=== PATIENT | male | born 1955 | race Caucasian/White ===

== ENCOUNTER 2020-12-26 12:10 | Outpatient (REF) | payer MEDICAID, SELFPAY ==
[2020-12-26 13:54] LABS: Prostate Specific Antigen 2.83 ng/mL (<0.05-4.0)
== END 2020-12-26 12:11 | disposition home or self-care (01) ==
LOC: HO.LAB 12:10
PROVIDERS: PCP Internal Medicine; Visit Provider Urology
DX: N40.1 Benign prostatic hyperplasia with lower urinary tract symptoms (principal); N13.8 Other obstructive and reflux uropathy; Z12.5 Encounter for screening for malignant neoplasm of prostate
CPT/HCPCS: 36415; 84153

== ENCOUNTER → 2020-12-29 10:33 | Outpatient (BNVA) | payer MEDICAID, SELFPAY | PROVIDERS: PCP Internal Medicine; Visit Provider Urology | DX: N52.9 Male erectile dysfunction, unspecified (principal); N40.1 Benign prostatic hyperplasia with lower urinary tract symptoms; R33.9 Retention of urine, unspecified; N13.8 Other obstructive and reflux uropathy | CPT/HCPCS: 51798; 81002; 99212 ==

== ENCOUNTER 2021-09-04 11:40 | Outpatient (REF) | payer MEDICAID, SELFPAY ==
--- NOTE | ~2021-09-04 | XR_ITS ---
EXAMINATION: XR CHEST CLINICAL INFORMATION: Cough, unspecified. COMPARISON: Chest radiograph 01/06/2014. TECHNIQUE: 2 views of the chest were obtained. FINDINGS: Normal appearance of the cardiomediastinal structures. No effusions or pneumothoraces. Normal pattern of pulmonary vasculature. No focal pulmonary consolidation. Mild multilevel endplate osteophytosis of the thoracic spine. Partial visualization is made of anterior plate and screw fixation within the lower cervical spine. XR/XR chest 2V IMPRESSION: *No cardiopulmonary abnormalities. Lungs clear.
== END 2021-09-04 11:41 | disposition home or self-care (01) ==
LOC: HO.XRAY 11:40
PROVIDERS: PCP Internal Medicine; Visit Provider Internal Medicine
DX: R05.9 Cough, unspecified (principal)
CPT/HCPCS: 71046

== ENCOUNTER 2021-10-26 13:59 | Outpatient (REF) | payer OTHER, MEDICAID, SELFPAY ==
--- NOTE | ~2021-10-26 | XR_ITS ---
EXAMINATION: RIGHT SHOULDER AND CERVICAL SPINE. CLINICAL INFORMATION: Neck pain and shoulder pain. COMPARISON: None TECHNIQUE: 4 views right shoulder and 4 views cervical spine. FINDINGS: Right shoulder: There is reduction in the glenohumeral joint space with inferior periarticular spurring. The AC joint space is maintained normal. There is.). There is also superior and lateral acromial enthesophytes. No loose body seen. No bony erosive changes. There is evidence of previous rotator cuff surgery. Cervical spine: There is maintained cervical lordosis. Ventral plate and screws are seen at the C5-C6 disc level for disc fusion. The vertebral heights and alignment is maintained normal. There is anterior inferior spurs C3 and C4 vertebra. No visible acute fracture or dislocation seen. No lytic process. XR/XR shoulder RT min 2V IMPRESSION: The degenerative arthritic changes right shoulder. No visible acute fracture or dislocation. C5-C6 anterior fusion with metallic plate and screws. Anterior inferior ventral spurring C3 and C4 vertebra.
--- NOTE | ~2021-10-26 | XR_ITS ---
EXAMINATION: RIGHT SHOULDER AND CERVICAL SPINE. CLINICAL INFORMATION: Neck pain and shoulder pain. COMPARISON: None TECHNIQUE: 4 views right shoulder and 4 views cervical spine. FINDINGS: Right shoulder: There is reduction in the glenohumeral joint space with inferior periarticular spurring. The AC joint space is maintained normal. There is.). There is also superior and lateral acromial enthesophytes. No loose body seen. No bony erosive changes. There is evidence of previous rotator cuff surgery. Cervical spine: There is maintained cervical lordosis. Ventral plate and screws are seen at the C5-C6 disc level for disc fusion. The vertebral heights and alignment is maintained normal. There is anterior inferior spurs C3 and C4 vertebra. No visible acute fracture or dislocation seen. No lytic process. XR/XR cervical spine 2V IMPRESSION: The degenerative arthritic changes right shoulder. No visible acute fracture or dislocation. C5-C6 anterior fusion with metallic plate and screws. Anterior inferior ventral spurring C3 and C4 vertebra.
== END 2021-10-26 14:00 | disposition home or self-care (01) ==
LOC: HO.XRAY 13:59
PROVIDERS: PCP Internal Medicine; Visit Provider Internal Medicine
DX: M54.2 Cervicalgia (principal); M25.511 Pain in right shoulder
CPT/HCPCS: 72040; 73030

== ENCOUNTER 2022-06-01 09:05 | Outpatient (REF) | payer MEDICARE, MEDICAID, SELFPAY ==
[2022-06-01 10:31] LABS: PSA,Total (Free>4and<10) 2.16 ng/mL (0.00-4.00)
== END 2022-06-01 09:06 | disposition home or self-care (01) ==
LOC: HO.LAB 09:05
PROVIDERS: PCP Internal Medicine; Visit Provider Urology
DX: N40.1 Benign prostatic hyperplasia with lower urinary tract symptoms (principal); N13.8 Other obstructive and reflux uropathy; E11.65 Type 2 diabetes mellitus with hyperglycemia; E78.5 Hyperlipidemia, unspecified; Z12.5 Encounter for screening for malignant neoplasm of prostate
CPT/HCPCS: 36415; 84153

== ENCOUNTER → 2022-06-06 09:56 | Outpatient (BNVA) | payer MEDICARE, MEDICAID, SELFPAY | PROVIDERS: PCP Internal Medicine; Visit Provider Urology | DX: N40.1 Benign prostatic hyperplasia with lower urinary tract symptoms (principal); N13.8 Other obstructive and reflux uropathy; R33.8 Other retention of urine; N52.9 Male erectile dysfunction, unspecified; Z79.899 Other long term (current) drug therapy | CPT/HCPCS: 51798; 99212 ==

== ENCOUNTER 2022-07-05 09:56 | Outpatient (REF) | payer MEDICARE, MEDICAID, SELFPAY ==
[2022-07-05 11:08] LABS: Estimated Average Glucose 169 mg/dL; Hemoglobin A1c % 7.5 %
[2022-07-05 11:22] LABS: Glucose Fasting 134 mg/dL (60-99)
== END 2022-07-05 09:57 | disposition home or self-care (01) ==
LOC: HO.LAB 09:56
PROVIDERS: PCP Internal Medicine; Visit Provider Internal Medicine
DX: E11.65 Type 2 diabetes mellitus with hyperglycemia (principal)
CPT/HCPCS: 36415; 82947; 83036

== ENCOUNTER 2023-01-12 08:00 | Outpatient (REF) | payer MEDICARE, MEDICAID, SELFPAY ==
[2023-01-12 08:19] LABS: MANUAL DIFF FLAG NO
[2023-01-12 08:41] LABS: Basophils Percent Auto 0.4 % (0-2); Eosinophils Absolute Auto 0.2 X10*3/uL (0.0-0.4); Eosinophils Percent Auto 2.4 % (0-4); Hematocrit 39.4 % (42.0-52.0); Hemoglobin 12.5 g/dl (14.0-18.0); Imm Gran Abs Auto 0.03 X10*3/uL (0.00-0.03); Imm Gran Pct Auto 0.4 % (0.0-0.4); Lymphocytes Absolute Auto 2.7 X10*3/uL (1.2-4.9); Lymphocytes Percent Auto 37.3 % (20-40); Mean Corpuscular HGB Conc 31.7 g/dl (31.0-36.0); Mean Corpuscular Hemoglobin 26.4 pg (27.0-33.0); Mean Corpuscular Volume 83.1 fL (80.0-98.0); Mean Platelet Volume 9.7 fL (9.4-12.4); Monocytes Absolute Auto 0.7 X10*3/uL (0.1-1.2); Monocytes Percent Auto 9.4 % (2-11); Neutrophils Absolute Auto 3.6 x10*3/uL (2.0-8.3); Neutrophils Percent Auto 50.1 % (45-73); Platelet Count 199 X10*3/uL (160-400); Red Blood Count 4.74 X10*6/uL (4.60-5.80); Red Cell Distribution Width 13.8 % (11.0-16.0); White Blood Count 7.2 X10*3/uL (4.8-10.8)
[2023-01-12 08:52] LABS: Estimated Average Glucose 171 mg/dL; Hemoglobin A1c % 7.6 %
[2023-01-12 09:10] LABS: Alanine Aminotransferase 33 U/L (0-40); Alkaline Phosphatase 61 U/L (39-117); Anion Gap 11 (12-20); Aspartate Amino Transferase 31 U/L (5-37); Bilirubin Total 0.6 mg/dL (0.0-1.0); Blood Urea Nitrogen 12 mg/dL (9-16); Calcium 9.3 mg/dL (8.4-10.2); Carbon Dioxide 27 mmol/L (22-29); Chloride 105 mmol/L (96-108); Cholesterol 142 mg/dL; Estimated Glomerular Filt Rate > 60; Glucose Fasting 141 mg/dL (60-99); HDL Cholesterol 34 mg/dL; LDL Cholesterol Calculated 69 mg/dl; Potassium 4.6 mmol/L (3.3-5.1); Sodium 138 mmol/L (135-145); Total Protein 7.4 g/dL (6.5-8.0); Triglycerides 195 mg/dL
== END 2023-01-12 08:01 | disposition home or self-care (01) ==
LOC: HO.LAB 08:00
PROVIDERS: PCP Internal Medicine; Visit Provider Internal Medicine
DX: Z13.0 Encounter for screening for diseases of the blood and blood-forming organs and certain disorders involving the immune mechanism (principal); I10 Essential (primary) hypertension; E11.9 Type 2 diabetes mellitus without complications; E78.5 Hyperlipidemia, unspecified
CPT/HCPCS: 36415; 80053; 80061; 83036; 85025

== ENCOUNTER 2023-05-29 09:14 | Outpatient (REF) | payer MEDICARE, MEDICAID, SELFPAY ==
[2023-05-29 11:34] LABS: Prostate Specific Antigen 2.77 ng/mL (<0.05-4.0)
== END 2023-05-29 09:15 | disposition home or self-care (01) ==
LOC: HO.LAB 09:14
PROVIDERS: PCP Internal Medicine; Visit Provider Urology
DX: N40.1 Benign prostatic hyperplasia with lower urinary tract symptoms (principal); N13.8 Other obstructive and reflux uropathy; Z12.5 Encounter for screening for malignant neoplasm of prostate
CPT/HCPCS: 36415; 84153

== ENCOUNTER 2023-06-06 10:50 | Outpatient (AMB) | payer MEDICARE, MEDICAID, SELFPAY ==
--- NOTE | 2023-06-06 10:55 | MHC.OFFVIS ---
Intake Intake Visit Reasons: 1Y PSA(set) Intake Note: Patient is present for PSA/PVR Follow Up Current Medication: Sildenafil, Terazosin Blood Thinners: none Post Void Residual: Allergies morphine [MORPHINE] Allergy (Intermediate, Verified 06/06/23 11:07) ITCHING, Itchy/hives sulfamethoxazole [From BACTRIM] Allergy (Mild, Verified 06/06/23 11:07) BLISTERS trimethoprim [From BACTRIM] Allergy (Mild, Verified 06/06/23 11:07) BLISTERS HPI HPI Comments History of Present Illness Details Jaime Liu is a very pleasant male. He is a patient of Dr Wei. He is seen for the following urologic conditions. - lower urinary tract symptoms - erectile dysfunction PSA 2.7 Stable urinary performance Trial daily tadalafil with on demand sildenafil New issue Peyronie's disease Ventral curve in midline reported Trial antioxidant medications 6 month review with imaging Lower Urinary Tract Symptoms: Current visit is for further evaluation of, lower urinary tract symptoms, predominate obstructive symptoms. Current treatment includes medication, alpha john, , terazosin 10 mg. Prior treatments include medication, 5-alpha reductase, finasteride - low PSA. Prostate Symptom Score Moderate (9-19), Bother 2. Symptoms include incomplete emptying, weak stream, nocturia (>2), and are improving. Results from testing include cystoscopy Trilobar hypertrophy Prior Prostate Score moderate. PSA PSA 10/26 1.0, 12/26 PSA 1.9, 12/28 2.8, 05/31 2.2, 06/01 2.7 Prostate volume 30-50gm. Associated conditions CAD No CVA No diabetes Yes Testing at next visit will include bladder scan, uroflow, Prostate Symptom Score. Treatment plan - terazosin 10 mg in the evening Prescription provided. Erectile dysfunction Progressive Background type 2 diabetic Current sugar control HbA1c 7.6 Headache with sildenafil Use of tadalafil PFSH Medical History (Updated 06/06/23 @ 11:16 by Luis Soriano MD) Erectile dysfunction Obesity Diabetes mellitus, type II Cervical herniated disc Erectile dysfunction due to arterial insufficiency Glucosuria BPH (benign prostatic hyperplasia) Feeling of incomplete bladder emptying Umbilical hernia External bleeding hemorrhoids Rectal bleeding Surgical History History of repair of rotator cuff History of hand surgery History of bunionectomy History of fusion of cervical spine History of rectal surgery Family History Father No problems noted. Mother Renal failure Heart disease Sister Diabetes Social History Housing: House Patient Tobacco Use Status: Never used Tobacco e-Cigarette/Vaping Use: Never Used Second Hand Smoke Exposure: No service: No Current occupational status: employed Cognitive needs: No Hearing needs: No Vision needs: No Review of Systems Const Denies chills and Denies fever(s) Card Reports no additional complaints and Denies syncope Resp Denies cough GI Denies abdominal pain and Denies heartburn Reports as per HPI and Denies change in libido Neuro Denies syncope Psych Denies change in libido Endo Denies change in libido Physical Exam Const General: cooperative, healthy appearing, comfortable and no acute distress Orientation/consciousness: patient oriented x3 HEENT Face and sinus: Yes normal facial exam Mouth: moist mucous membranes Neck Neck: Yes normal visual inspection, Yes full ROM and Yes trachea midline Chest Chest palpation & inspection: normal inspection of the chest Resp Effort & Inspection: normal respiratory effort, able to speak in complete sentences and no respiratory distress GI Inspection: Yes normal to inspection Back/Spine/Pelvis Cervical Spine: normal cervical lordosis Thoracic/Lumbar Spine: thoracic and lumbar spine normal to inspection Skin General skin exam: no rashes or lesions noted Neuro General: patient oriented x3, gait normal, tone normal and moves all extremities Extrem General: Yes normal to inspection and Yes capillary refill normal Office Procedures Post Void Residual Post Residual Void Post Void Residual (PVR): 12 60411-[id number] Void Residual by ultrasound Results AMB Urinalysis, Automated UA Leukoctes 0 Marlen/uL Last Edit by Maciej Shea on 06/06/23 11:09 UA Nitrite Last Edit by Maciej Shea on 06/06/23 11:09 UA Urobilinogen 0.2 mg/dL Last Edit by Maciej hSea on 06/06/23 11:09 UA Protein 0 mg/dL Last Edit by Maciej Shea on 06/06/23 11:09 UA pH 6.0 Last Edit by Maciej Shea on 06/06/23 11:09 UA Blood 0 Calos/uL Last Edit by Maciej Shea on 06/06/23 11:09 UA Specific Palmer 1.010 Last Edit by Maciej Shea on 06/06/23 11:09 UA Ketone Negative Last Edit by Maciej Shea on 06/06/23 11:09 UA Bilirubin 0 mg/dL Last Edit by Maciej Shea on 06/06/23 11:09 UA Glucose 100 mg/dL Last Edit by Maciej Shea on 06/06/23 11:09 Assessment & Plan Assessment & Plan (1) Peyronie's disease: Code(s): N48.6 - Induration penis plastica (2) Erectile dysfunction associated with type 2 diabetes mellitus: Code(s): E11.69 - Type 2 diabetes mellitus with other specified complication; N52.1 - Erectile dysfunction due to diseases classified elsewhere (3) BPH w urinary obs/LUTS: Code(s): N40.1 - Benign prostatic hyperplasia with lower urinary tract symptoms; N13.8 - Other obstructive and reflux uropathy Plan Six month follow-up Orders: Orders AMB Post Void Residual by ultrasound Today N13.8 - Other obstructive and reflux uropathy, N40.1 - Benign prostatic hyperplasia with lower urinary tract symptoms AMB Urinalysis Automated Today Z13.9 - Encounter for screening, unspecified Medications: New tadalafil 5 mg PO DAILY 90 days 90 tabs 0RF sexual activity E11.69 - Type 2 diabetes mellitus with other specified complication, N52.1 - Erectile dysfunction due to diseases classified elsewhere vitamin E (dl, acetate) 450 mg PO DAILY 90 caps 1RF 90 days N48.6 - Induration penis plastica pentoxifylline ER 400 mg PO BID 180 tabs 1RF 90 days N48.6 - Induration penis plastica Refilled terazosin 10 mg PO DAILY 90 days 90 caps 3RF N13.8 - Other obstructive and reflux uropathy, N40.1 - Benign prostatic hyperplasia with lower urinary tract symptoms sildenafil administer 60 minutes before intended activity 100 mg PO DAILY 30 days PRN 30 tabs 1RF sexual activity N52.9 - Male erectile dysfunction, unspecified Patient Instructions: Imaging studies, laboratory and physical exam results were discussed and reviewed in detail. No major barriers to patient understanding were identified. An opportunity to ask questions regarding the treatment plan was provided. All questions were answered. The patient expressed understanding and agreement with the above treatment plan. The patient is aware they should contact our office by phone for worsening of their current condition or the appearance of new urologic symptoms. Compliance is encouraged with any medications and followup testing that is ordered. It is a privilege to participate in the urologic care of your patient. If you have any questions or concerns regarding treatment for the above conditions, or other urologic issues, please do not hesitate to contact me. The office telephone contact is [phone]. This note is constructed using voice recognition software. While every effort has been made to ensure accuracy deep well contractor errors may have been included. Yours sincerely, Dr Luis Soriano MD, [facility] - Urology Providers of Expert, Compassionate Care for the Genitourinary System Coding Level of Care Code Est Pt Level 4 (44645) Diagnoses Peyronie's disease N48.6 Erectile dysfunction associated with type 2 diabetes mellitus E11.69; N52.1 BPH w urinary obs/LUTS N40.1; N13.8 CPT Codes Post Residual Void - PVR CPT Code: 73263-[id number] Void Residual by ultrasound ([id number])
== END 2023-06-06 11:57 | disposition home or self-care (01) ==
PROVIDERS: PCP Internal Medicine; Visit Provider Urology
DX: N48.6 Induration penis plastica (principal); E11.69 Type 2 diabetes mellitus with other specified complication; N52.1 Erectile dysfunction due to diseases classified elsewhere; N40.1 Benign prostatic hyperplasia with lower urinary tract symptoms; N13.8 Other obstructive and reflux uropathy; Z13.9 Encounter for screening, unspecified
CPT/HCPCS: 99214

== ENCOUNTER → 2023-06-06 10:50 | Outpatient (BNVA) | payer MEDICARE, MEDICAID, SELFPAY | PROVIDERS: Visit Provider Urology | DX: N48.6 Induration penis plastica (principal); E11.69 Type 2 diabetes mellitus with other specified complication; N52.1 Erectile dysfunction due to diseases classified elsewhere; N40.1 Benign prostatic hyperplasia with lower urinary tract symptoms; N13.8 Other obstructive and reflux uropathy | CPT/HCPCS: 51798; 81003; 99212 ==

== ENCOUNTER 2023-06-18 11:40 | Outpatient (AMB) | payer MEDICARE, MEDICAID, SELFPAY ==
[2023-06-18 11:42] VITALS: BP 130/68; PULSE 67; O2SAT 98; BMI 34.0
--- NOTE | 2023-06-18 11:42 | MHC.PC.OV ---
Vital Signs 06/18/23 11:42 Height 5 ft 11 in Weight 244 lb BMI 34.0 BP 130/68 Blood Pressure Location Lt brachial Position Sitting Pulse 67 Pulse Source Pulse Oximeter Pulse Oximetry (%) 98 Oxygen Delivery Method Room Air Intake Visit Reasons: right leg pain Allergies morphine [MORPHINE] Allergy (Intermediate, Verified 06/18/23 11:43) ITCHING, Itchy/hives sulfamethoxazole [From BACTRIM] Allergy (Mild, Verified 06/18/23 11:43) BLISTERS trimethoprim [From BACTRIM] Allergy (Mild, Verified 06/18/23 11:43) BLISTERS Medication List - Last Reconciled 06/18/23 by Abhishek Terrell MD lisinopril 20 mg PO DAILY metformin 1,000 mg PO BID 90 days methylprednisolone PO PER PKG DIR pentoxifylline ER 400 mg PO BID 90 days sildenafil 100 mg PO DAILY PRN 30 days tadalafil 5 mg PO DAILY 90 days terazosin 10 mg PO DAILY 90 days vitamin E (dl, acetate) 450 mg PO DAILY 90 days Tobacco use date assessed: 01/15/23 Fall risk assessment: No Falls in past year Last assessed Fall Risk: 06/18/23 Dental Screening Dental Screen Date: 06/18/23 Did you have a dental visit in the last 12 months?: Yes Did you have a dental problem in the last 6 months where you did not have access to dental care?: No Was dental information given to patient?: Patient has dentist HPI right leg pain HPI Details bilat lower leg pains PFSH Medical History Erectile dysfunction Obesity Diabetes mellitus, type II Cervical herniated disc Erectile dysfunction due to arterial insufficiency Glucosuria BPH (benign prostatic hyperplasia) Feeling of incomplete bladder emptying Umbilical hernia External bleeding hemorrhoids Rectal bleeding Surgical History History of repair of rotator cuff History of hand surgery History of bunionectomy History of fusion of cervical spine History of rectal surgery Family History Father No problems noted. Mother Renal failure Heart disease Sister Diabetes Social History Housing: House Patient Tobacco Use Status: Never used Tobacco e-Cigarette/Vaping Use: Never Used Second Hand Smoke Exposure: No service: No Current occupational status: employed Cognitive needs: No Hearing needs: No Vision needs: No Questionnaire PHQ-9 Over the last 2 weeks, how often have you been bothered by any of the following problems? 1. Little interest or pleasure in doing things: not at all 2. Feeling down, depressed, or hopeless: not at all 3. Trouble falling or staying asleep, or sleeping too much: not at all 4. Feeling tired or having little energy: not at all 5. Poor appetite or overeating: not at all 6. Feeling bad about yourself - or that you are a failure or have let yourself or your family down: not at all 7. Trouble concentrating on things, such as reading the newspaper or watching television: not at all 8. Moving or speaking so slowly that other people could have noticed. Or the opposite - being so fidgety or restless that you have been moving around a lot more than usual: not at all 9. Thoughts that you would be better off or of hurting yourself in some way: not at all Total score: 0 Depression Screening Interpretation: Negative Depression Screening Done: Yes 62554 - PHQ-9 Billing: Yes Source: Developed by Drs. Blaine Glass, Savita Larkin, Mason Rosa and colleagues, with an educational jerrod from [employer]. Thrive Questionnaire Date Thrive assessed: 01/15/23 AUDIT C Alcohol Use Questionnaire (AUDIT-C) 1. How often do you have a drink containing alcohol?: Never Total Score: 0 Score Reviewed/Action Taken: Yes BRYAN-7 AMB Questionnaire BRYAN-7 Date BRYAN - 7 assessed: 01/15/23 Source: Developed by Drs. Blaine Glass, Mason Miller and colleagues, with an educational jerrod from [employer]. Review of Systems Const Denies chills, Denies headache(s) and Denies weight loss ENT Denies headache(s) Card Denies chest pain, Denies syncope, Denies irregular heart rhythm and Denies dyspnea Resp Denies chest congestion, Denies cough and Denies dyspnea GI Denies abdominal pain, Denies change in stool character, Denies nausea and Denies vomiting Musc Denies deformity and Denies joint swelling Neuro Denies syncope and Denies headache(s) Physical exam (Primary Care) Vital Signs: Last Vital Signs Pulse 67 06/18/23 11:42 BP 130/68 06/18/23 11:42 Pulse Ox 98 06/18/23 11:42 Oxygen Delivery Method Room Air 06/18/23 11:42 BMI result Body Mass Index 34.0 Tobacco/Smoking Status: Tobacco use Status Tobacco use date assessed 01/15/23 06/18/23 11:49 Patient Tobacco Use Status Never used Tobacco 06/18/23 11:49 e-Cigarette/Vaping Use Never Used 06/18/23 11:49 PHQ-9: PHQ-9 Score PHQ-9: Total score 0 06/18/23 12:33 Depression Screening Interpretation: Negative Thrive Assessment: Date of Thrive Assessment Date Thrive assessed 01/15/23 06/18/23 11:49 Const General: cooperative, comfortable and no acute distress Resp Effort & Inspection: normal respiratory effort Auscultation: clear to auscultation bilaterally Percussion: percussion normal Cardio Jugular venous distension: no JVD Rate: regular rate Rhythm: regular rhythm Extrem Other: decreased pedal pulses; varicose veins Office Procedures Flu Questionnaire Does the patient have a severe egg allergy?: No Does the patient have severe life threatening allergies?: No Does the patient have a fever or illness today?: No Has the patient ever had Guillain-[place] Syndrome?: No Has the patient ever had any past reaction to a flu shot?: No Results AMB Hemoglobin A1c AMB Hemoglobin A1c 8.3 % Last Edit by ASHLEY Reddy on 06/18/23 12:33 Immunizations flu vacc [id number] 6mos up(PF) 60 mcg(15 mcgx4)/0.5 mL IM syringe Performing Provider: Abhishek Terrell MD [facility] Administered by: ASHLEY Reddy on 06/18/23 12:00 Dose Route Admin Location Dispensed Lot Number Expiration Date NDC Street Light Repairer 0.5 mL IM Left Deltoid 0.5 mL [id number] 03/08/24 09747-446-[address] VIS Given Date VIS Provided VIS Publication Date 06/18/23 Single Vaccine 21 Eligibility Eligibility Date Funding Source Not VFC Eligible 06/18/23 Private Results Reviewed Results Reviewed: Laboratory Last Values Hgb A1c (Clinic) 8.3 % (4.0-6.0) H 06/18/23 11:53 Assessment and Plan Assessment & Plan (1) Peripheral vascular disease: Code(s): I73.9 - Peripheral vascular disease, unspecified Plan check arterial and venous us Orders: Orders US venous duplex LE BI Today I87.2 - Venous insufficiency (chronic) (peripheral) AMB Hemoglobin A1c Today E11.9 - Type 2 diabetes mellitus without complications, I10 - Essential (primary) hypertension Influenza [id number] Immunization Today Z23 - Encounter for immunization US arterial duplex LE BI Today I73.9 - Peripheral vascular disease, unspecified Coding Level of Care Code Est Pt Level 3 (93328) Diagnoses Peripheral vascular disease I73.9
== END 2023-06-18 12:02 | disposition home or self-care (01) ==
PROVIDERS: PCP Internal Medicine; Visit Provider Internal Medicine
DX: E11.51 Type 2 diabetes mellitus with diabetic peripheral angiopathy without gangrene (principal); I10 Essential (primary) hypertension; Z23 Encounter for immunization; I73.9 Peripheral vascular disease, unspecified
CPT/HCPCS: 83036; 90471; 90686; 99213

== ENCOUNTER 2023-07-02 08:30 | Outpatient (REF) | payer MEDICARE, MEDICAID, SELFPAY ==
--- NOTE | ~2023-07-02 | US_ITS ---
EXAMINATION: US LOWER EXTREMITY VENOUS (REFLUX EXAM), BILATERAL CLINICAL INDICATION: Chronic venous insufficiency with lower extremity varicose veins and pain COMPARISON: None. TECHNIQUE: Color flow triplex imaging and compression Doppler was performed to evaluate both the deep and the superficial systems bilaterally. To evaluate the superficial system, the examination was performed in the upright position. Color-flow Doppler ultrasound and compression ultrasound were utilized. In addition, maneuvers were utilized to demonstrate reflux. FINDINGS: 1. DEEP VENOUS ULTRASOUND OF THE RIGHT LOWER EXTREMITY: Common Femoral Vein: Compressible, normal respiratory variation and augmented flow. Femoral Vein: Compressible, normal color flow and augmentation. Popliteal Vein: Compressible, normal augmentation. Deep Reflux: There is no evidence of reflux in the deep system in either the common femoral vein or the popliteal vein. There is no evidence of a Andrade's cyst. 2. SUPERFICIAL ULTRASOUND WITH DOPPLER OF RIGHT LOWER EXTREMITY: GREAT SAPHENOUS VEIN: Saphenofemoral Junction: 0.7 cm; Reflux: 880 ms Proximal Thigh: 0.5 cm; Reflux: 3072 ms Mid Thigh: 0.4 cm; Reflux: 0 ms Above Knee: 0.4 cm; Reflux: 820 ms At Knee: 0.4 cm; Reflux: 0 ms Below Knee: 0.2 cm; Reflux: 1352 ms Mid Calf: 0.2 cm; Reflux: 0 ms Ankle: 0.2 cm; Reflux: 0 ms DUPLICATED MEDIAL GREAT SAPHENOUS VEIN: Diameter: None imaged Reflux: NA DUPLICATED LATERAL GREAT SAPHENOUS VEIN: Diameter: None imaged Reflux: NA SMALL SAPHENOUS VEIN: Proximal: 0.3 cm; Reflux: 0 ms Distal: 0.3 cm; Reflux: 0 ms VEIN OF GIACOMINI: Size: NA Reflux: NA PERFORATORS: Location: Proximal calf into the great saphenous vein Size: 0.3 cm Reflux: 1640 ms VARICOSITIES: Location: Knee, proximal calf and distal calf off the great saphenous vein Size: 0.3 to 0.4 cm Reflux: Ranging from 844 ms to 2604 ms 3. DEEP VENOUS ULTRASOUND OF THE LEFT LOWER EXTREMITY: Common Femoral Vein: Compressible, normal respiratory variation and augmented flow. Femoral Vein: Compressible, normal color flow and augmentation. Popliteal Vein: Compressible, normal augmentation. Deep Reflux: Deep venous reflux seen in the common femoral vein negative superficial femoral vein ranging from 1944 ms to 2720 ms There is no evidence of a Andrade's cyst. 4. SUPERFICIAL ULTRASOUND WITH DOPPLER OF LEFT LOWER EXTREMITY: GREAT SAPHENOUS VEIN: Saphenofemoral Junction: 0.8 cm; Reflux: 0 ms Proximal Thigh: 0.2 cm; Reflux: 0 ms Mid Thigh: 0.2 cm; Reflux: 0 ms Above Knee: 0.4 cm; Reflux: 2940 ms Below Knee: 0.2 cm; Reflux: 1080 ms Mid Calf: 0.2 cm; Reflux: 0 ms Ankle: 0.2 cm; Reflux: 0 ms DUPLICATED MEDIAL GREAT SAPHENOUS VEIN: Diameter: None imaged Reflux: NA DUPLICATED LATERAL GREAT SAPHENOUS VEIN: Diameter: None imaged Reflux: NA SMALL SAPHENOUS VEIN: Proximal: 0.5 cm; Reflux: 2492 ms Distal: 0.4 cm; Reflux: 1540 ms VEIN OF GIACOMINI: Size: NA Reflux: NA PERFORATORS: Location: None significant Size: NA Reflux: NA VARICOSITIES: Location: Posterior distal calf off the small saphenous vein Size: 0.4 cm Reflux: None VARICOSITIES: Location: Medial knee off the great saphenous vein Size: 0.3 cm Reflux: 2604 ms US/US venous duplex LE BI IMPRESSION: Right: Moderate to severe reflux in the right great saphenous vein as described above. Multiple varicosities arising off the great saphenous vein with reflux as described above Left: Severe reflux in the left small saphenous vein as described above. Segmental areas of reflux in the great saphenous vein in the distal thigh and proximal calf. Branching varicosities off the great saphenous and small saphenous vein as described
== END 2023-07-02 08:31 | disposition home or self-care (01) ==
LOC: HO.US 08:30
PROVIDERS: PCP Internal Medicine; Visit Provider Internal Medicine
DX: I87.2 Venous insufficiency (chronic) (peripheral) (principal)
CPT/HCPCS: 93970

== ENCOUNTER 2023-07-09 13:45 | Outpatient (REF) | payer MEDICARE, MEDICAID, SELFPAY ==
--- NOTE | ~2023-07-09 | US_ITS ---
EXAMINATION: Noninvasive assessment of the bilateral lower extremities with ARTERIAL DUPLEX. CLINICAL INFORMATION: Peripheral vascular disease TECHNIQUE: Duplex Doppler techniques with waveform analysis and measurement of velocities in the bilateral common femoral, profunda femoris, superficial femoral, popliteal and tibial arteries were performed. COMPARISON: None FINDINGS: DIRECT DUPLEX DOPPLER FINDINGS: RIGHT LEG: Common femoral artery: 91.8 cm/s, phasicity: Triphasic Profunda femoris artery: 55.7 cm/s, phasicity: Triphasic Superficial femoral artery (proximal): 114 cm/s, phasicity: Triphasic Superficial femoral artery (mid): 107 cm/s, phasicity: Triphasic Superficial femoral artery (distal): 125 cm/s, phasicity: Triphasic Popliteal artery: 110 cm/s, phasicity: Triphasic Posterior tibial artery: 87.0 cm/s, phasicity: Triphasic Peroneal artery: 67.6 cm/s, phasicity: Triphasic Anterior tibial artery: 80.6 cm/s, phasicity: Triphasic Dorsalis pedis artery: 99.3 cm/s, phasicity:Triphasic LEFT LEG: Common femoral artery: 104 cm/s, phasicity: Triphasic Profunda femoris artery: 51.8 cm/s, phasicity: Biphasic Superficial femoral artery (proximal): 106 cm/s, phasicity: Triphasic Superficial femoral artery (mid): 108 cm/s, phasicity: Triphasic Superficial femoral artery (distal): 91.9 cm/s, phasicity: Triphasic Popliteal artery: 80.1 cm/s, phasicity: Triphasic Posterior tibial artery: 106 cm/s, phasicity: Triphasic Peroneal artery: 80.3 cm/s, phasicity: Triphasic Anterior tibial artery: 81.1 cm/s, phasicity: Triphasic Dorsalis pedis artery: 85.5 cm/s, phasicity: Triphasic US/US arterial duplex LE BI IMPRESSION: Normal arterial duplex ultrasound of the bilateral lower extremities
== END 2023-07-09 13:46 | disposition home or self-care (01) ==
LOC: HO.US 13:45
PROVIDERS: PCP Internal Medicine; Visit Provider Internal Medicine
DX: I73.9 Peripheral vascular disease, unspecified (principal)
CPT/HCPCS: 93925

== ENCOUNTER 2023-07-23 09:21 | Outpatient (AMB) | payer MEDICARE, MEDICAID, SELFPAY ==
[2023-07-23 09:26] VITALS: BP 156/88; PULSE 63; O2SAT 99; BMI 33.6
--- NOTE | 2023-07-23 09:26 | A.OFFPC_ITS ---
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 Merchandiser: Not Required per policy Accompanied by: Self / Same As Patient Allergies morphine [MORPHINE] Allergy (Intermediate, Verified 07/23/23 09:26) ITCHING, Itchy/hives sulfamethoxazole [From BACTRIM] Allergy (Mild, Verified 07/23/23 09:26) BLISTERS trimethoprim [From BACTRIM] Allergy (Mild, Verified 07/23/23 09:26) BLISTERS Medication List - Last Reconciled 07/23/23 by Abhishek Terrell MD lisinopril 20 mg PO DAILY metformin 1,000 mg PO BID 90 days methylprednisolone PO PER PKG DIR pentoxifylline ER 400 mg PO BID 90 days sildenafil 100 mg PO DAILY PRN 30 days tadalafil 5 mg PO DAILY 90 days terazosin 10 mg PO DAILY 90 days vitamin E (dl, acetate) 450 mg PO DAILY 90 days Tobacco use date assessed: 01/15/23 Fall risk assessment: No Falls in past year Last assessed Fall Risk: 07/23/23 Dental Screening Dental Screen Date: 07/23/23 Did you have a dental visit in the last 12 months?: Yes Did you have a dental problem in the last 6 months where you did not have access to dental care?: No Was dental information given to patient?: Patient has dentist HPI 6mth f/u HPI Details HTN DM and venous insuff; A1C 8.3 due to dietary indiscretion [facility] Medical History Erectile dysfunction Obesity Diabetes mellitus, type II Cervical herniated disc Erectile dysfunction due to arterial insufficiency Glucosuria BPH (benign prostatic hyperplasia) Feeling of incomplete bladder emptying Umbilical hernia External bleeding hemorrhoids Rectal bleeding Surgical History History of repair of rotator cuff History of hand surgery History of bunionectomy History of fusion of cervical spine History of rectal surgery Family History Father No problems noted. Mother Renal failure Heart disease Sister Diabetes Social History Housing: House Patient Tobacco Use Status: Never used Tobacco e-Cigarette/Vaping Use: Never Used Second Hand Smoke Exposure: No service: No Current occupational status: employed Cognitive needs: No Hearing needs: No Vision needs: No Questionnaire PHQ-9 Over the last 2 weeks, how often have you been bothered by any of the following problems? 1. Little interest or pleasure in doing things: not at all 2. Feeling down, depressed, or hopeless: not at all 3. Trouble falling or staying asleep, or sleeping too much: not at all 4. Feeling tired or having little energy: not at all 5. Poor appetite or overeating: not at all 6. Feeling bad about yourself - or that you are a failure or have let yourself or your family down: not at all 7. Trouble concentrating on things, such as reading the newspaper or watching television: not at all 8. Moving or speaking so slowly that other people could have noticed. Or the opposite - being so fidgety or restless that you have been moving around a lot more than usual: not at all 9. Thoughts that you would be better off or of hurting yourself in some way: not at all Total score: 0 Depression Screening Interpretation: Negative Depression Screening Done: Yes 14905 - PHQ-9 Billing: Yes Source: Developed by Drs. Blaine Glass, Savita Larkin, Mason Rosa and colleagues, with an educational jerrod from [employer]. Thrive Questionnaire Date Thrive assessed: 01/15/23 AUDIT C Alcohol Use Questionnaire (AUDIT-C) 1. How often do you have a drink containing alcohol?: Never Total Score: 0 Score Reviewed/Action Taken: Yes BRYAN-7 AMB Questionnaire BRYAN-7 Date BRYAN - 7 assessed: 01/15/23 Source: Developed by Drs. Blaine Glass, Savita Larkin, Mason Rosa and colleagues, with an educational jerrod from [employer]. Review of Systems Const Denies chills, Denies headache(s) and Denies weight loss ENT Denies headache(s) Card Denies chest pain, Denies syncope, Denies irregular heart rhythm and Denies dyspnea Resp Denies chest congestion, Denies cough and Denies dyspnea GI Denies abdominal pain, Denies change in stool character, Denies nausea and Denies vomiting Musc Denies deformity and Denies joint swelling Neuro Denies syncope and Denies headache(s) Physical exam (Primary Care) Vital Signs: Last Vital Signs Pulse 63 07/23/23 09:26 BP 156/88 H 07/23/23 09:26 Pulse Ox 99 07/23/23 09:26 Oxygen Delivery Method Room Air 07/23/23 09:26 BMI result Body Mass Index 33.6 Tobacco/Smoking Status: Tobacco use Status Tobacco use date assessed 01/15/23 07/23/23 09:27 Patient Tobacco Use Status Never used Tobacco 07/23/23 09:27 e-Cigarette/Vaping Use Never Used 07/23/23 09:27 PHQ-9: PHQ-9 Score PHQ-9: Total score 0 07/23/23 09:27 Depression Screening Interpretation: Negative Thrive Assessment: Date of Thrive Assessment Date Thrive assessed 01/15/23 07/23/23 09:27 Const General: cooperative, comfortable, no acute distress and alert Neck Neck: Yes no lymphadenopathy Thyroid: Thyroid normal Resp Effort & Inspection: normal respiratory effort Auscultation: clear to auscultation bilaterally Percussion: percussion normal Cardio Jugular venous distension: no JVD Palpation: normal PMI Rate: regular rate Rhythm: regular rhythm Heart sounds: S1 normal heart sound present and S2 normal heart sound present GI Inspection: Yes normal to inspection Palpation (GI): No hepatosplenomegaly present Skin General skin exam: no rashes or lesions noted Extrem General: Yes no clubbing, cyanosis or edema Assessment and Plan Assessment & Plan (1) Hypertension: Code(s): I10 - Essential (primary) hypertension Plan: stable; same rx (2) Diabetes mellitus with coincident hypertension: Code(s): E11.9 - Type 2 diabetes mellitus without complications; I10 - Essential (primary) hypertension Plan: improve diet (3) Venous insufficiency: Code(s): I87.2 - Venous insufficiency (chronic) (peripheral) Plan: stable Orders: Orders Glucose Fasting Today R73.9 - Hyperglycemia, unspecified Lipid Panel Today E78.5 - Hyperlipidemia, unspecified Hemoglobin A1c Today R73.9 - Hyperglycemia, unspecified Coding Level of Care Code Est Pt Level 4 (26969) Diagnoses Hypertension I10 Diabetes mellitus with coincident hypertension E11.9; I10 Venous insufficiency I87.2
== END 2023-07-23 09:43 | disposition home or self-care (01) ==
PROVIDERS: Visit Provider Internal Medicine
DX: I10 Essential (primary) hypertension (principal); E11.9 Type 2 diabetes mellitus without complications; I87.2 Venous insufficiency (chronic) (peripheral)
CPT/HCPCS: 99214

== ENCOUNTER 2023-09-17 08:05 | Outpatient (AMB) | payer MEDICARE, MEDICAID, SELFPAY ==
--- NOTE | 2023-09-17 08:06 | A.OFFVIS_ITS ---
Intake Intake Visit Reasons: 6M Med Review(Terazosin) Intake Note: Patient is presents via telephone vist for Med Review: Current Medication: Tadalfil, Terazosin, Pentoxifylline (pt never took this medication) Blood Thinners: none Garbage Stoker Required: No Accompanied by: Self / Same As Patient Allergies morphine [MORPHINE] Allergy (Intermediate, Verified 09/17/23 08:12) ITCHING, Itchy/hives sulfamethoxazole [From BACTRIM] Allergy (Mild, Verified 09/17/23 08:12) BLISTERS trimethoprim [From BACTRIM] Allergy (Mild, Verified 09/17/23 08:12) BLISTERS Medication List - Last Reconciled 09/17/23 by Luis Soriano MD lisinopril 20 mg PO DAILY metformin 1,000 mg PO BID 90 days pentoxifylline ER 400 mg PO BID 90 days sildenafil 100 mg PO DAILY PRN 30 days tadalafil 5 mg PO DAILY 90 days terazosin 10 mg PO DAILY 90 days vitamin E (dl, acetate) 450 mg PO DAILY 90 days HPI HPI Comments History of Present Illness Details Jaime Liu is a very pleasant male. He is a patient of Dr Wei. He is seen for the following urologic conditions. - lower urinary tract symptoms - erectile dysfunction - Peyronie's disease Telemedicine Evaluation 15 min Consultation [employer] Video Follow-up from - Trial daily tadalafil with on demand sildenafil Effective response for erections Refill provided Peyronie's disease Ventral curve in midline reported Stable with minimal impact on intercourse Lower Urinary Tract Symptoms: Current visit is for further evaluation of, lower urinary tract symptoms, predominate obstructive symptoms. Current treatment includes medication, alpha john, , terazosin 10 mg. Prior treatments include medication, 5-alpha reductase, finasteride - low PSA. Prostate Symptom Score Moderate (9-19), Bother 2. Symptoms include incomplete emptying, weak stream, nocturia (>2), and are improving. Results from testing include cystoscopy Trilobar hypertrophy Prior Prostate Score moderate. PSA PSA 10/26 1.0, 12/26 PSA 1.9, 12/28 2.8, 05/31 2.2, 06/01 2.7 Prostate volume 30-50gm. Associated conditions diabetes Yes Testing at next visit will include bladder scan, uroflow, Prostate Symptom Score. Treatment plan - terazosin 10 mg in the evening Prescription provided. Erectile dysfunction Progressive Background type 2 diabetic Current sugar control HbA1c 7.6 Headache with sildenafil Use of tadalafil PFSH Medical History Erectile dysfunction Obesity Diabetes mellitus, type II Cervical herniated disc Erectile dysfunction due to arterial insufficiency Glucosuria BPH (benign prostatic hyperplasia) Feeling of incomplete bladder emptying Umbilical hernia External bleeding hemorrhoids Rectal bleeding Surgical History History of repair of rotator cuff History of hand surgery History of bunionectomy History of fusion of cervical spine History of rectal surgery Family History Father No problems noted. Mother Renal failure Heart disease Sister Diabetes Social History Housing: House Patient Tobacco Use Status: Never used Tobacco e-Cigarette/Vaping Use: Never Used Second Hand Smoke Exposure: No service: No Current occupational status: employed Cognitive needs: No Hearing needs: No Vision needs: No Review of Systems Const All systems reviewed & are unremarkable except as noted in HPI and below Reports no additional complaints Resp Reports no additional complaints GI Reports no additional complaints Reports as per HPI Musc Reports no additional complaints Physical Exam Telemedicine evaluation Appropriate responses Regular breathing rate and rhythm HEENT Head: Yes normal to inspection Ears: hearing grossly normal bilaterally Eyes General: appearance normal, both eyes and all related structures Neck Neck: Yes normal visual inspection Chest Chest palpation & inspection: normal inspection of the chest Resp Effort & Inspection: normal respiratory effort and able to speak in complete sentences Assessment & Plan Assessment & Plan (1) Peyronie's disease: Code(s): N48.6 - Induration penis plastica (2) Erectile dysfunction associated with type 2 diabetes mellitus: Code(s): E11.69 - Type 2 diabetes mellitus with other specified complication; N52.1 - Erectile dysfunction due to diseases classified elsewhere Plan Six month follow-up office Medications: Refilled tadalafil 5 mg PO DAILY 90 days 90 tabs 1RF sexual activity E11.69 - Type 2 diabetes mellitus with other specified complication, N52.1 - Erectile dysfunction due to diseases classified elsewhere Discontinued methylprednisolone Discontinued Reason: Patient Completed Course PO PER PKG DIR 21 ea 0RF Patient Instructions: Imaging studies, laboratory and physical exam results were discussed and reviewed in detail. No major barriers to patient understanding were identified. An opportunity to ask questions regarding the treatment plan was provided. All questions were answered. The patient expressed understanding and agreement with the above treatment plan. The patient is aware they should contact our office by phone for worsening of their current condition or the appearance of new urologic symptoms. Compliance is encouraged with any medications and followup testing that is ordered. It is a privilege to participate in the urologic care of your patient. If you have any questions or concerns regarding treatment for the above conditions, or other urologic issues, please do not hesitate to contact me. The office telephone contact is [phone]. This note is constructed using voice recognition software. While every effort has been made to ensure accuracy philosophy faculty member errors may have been included. Yours sincerely, Dr Luis Soriano MD, [facility] - Urology Providers of Expert, Compassionate Care for the Genitourinary System Telehealth Telehealth Location of provider rendering services: practice address Location of patient: address on file Patient Identification confirmed using: Name, : Yes Telehealth method: voice only Patient verbally consented to treatment: Yes Patient verbally consented to billing insurance company: Yes Patient informed of any privacy concerns related to visit: Yes Coding Level of Care Code Tele Est Pt Level 3 (65706) Diagnoses Peyronie's disease N48.6 Erectile dysfunction associated with type 2 diabetes mellitus E11.69; N52.1
== END 2023-09-17 09:31 | disposition home or self-care (01) ==
LOC: HO.HUSH 08:05
PROVIDERS: PCP Internal Medicine; Visit Provider Urology
DX: N48.6 Induration penis plastica (principal); E11.69 Type 2 diabetes mellitus with other specified complication; N52.1 Erectile dysfunction due to diseases classified elsewhere
CPT/HCPCS: 99442

== ENCOUNTER → 2023-09-17 08:05 | Outpatient (BNVA) | payer MEDICARE, MEDICAID, SELFPAY | PROVIDERS: PCP Internal Medicine; Visit Provider Urology ==

== ENCOUNTER 2023-10-16 14:15 | Outpatient (AMB) | payer MEDICARE, MEDICAID, SELFPAY ==
[2023-10-16 14:16] VITALS: BP 142/84; PULSE 89; O2SAT 99; BMI 33.7
--- NOTE | 2023-10-16 14:16 | MHC.PC.OV ---
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: No Fire Code Inspector: Not Required per policy Accompanied by: Self / Same As Patient Allergies morphine [MORPHINE] Allergy (Intermediate, Verified 10/16/23 14:17) ITCHING, Itchy/hives sulfamethoxazole [From BACTRIM] Allergy (Mild, Verified 10/16/23 14:17) BLISTERS trimethoprim [From BACTRIM] Allergy (Mild, Verified 10/16/23 14:17) BLISTERS Medication List - Last Reconciled 10/16/23 by Abhishek Terrell MD lisinopril 20 mg PO DAILY metformin 1,000 mg PO BID 90 days tadalafil 5 mg PO DAILY 90 days terazosin 10 mg PO DAILY 90 days Tobacco use date assessed: 10/16/23 Fall risk assessment: No Falls in past year Last assessed Fall Risk: 10/16/23 Dental Screening Dental Screen Date: 10/16/23 Did you have a dental visit in the last 12 months?: Yes Did you have a dental problem in the last 6 months where you did not have access to dental care?: No Was dental information given to patient?: Patient has dentist HPI Right hip pain HPI Details righ low back pain fpr seven years; had [facility] fairly unremarkable [facility] Medical History Erectile dysfunction Obesity Diabetes mellitus, type II Cervical herniated disc Erectile dysfunction due to arterial insufficiency Glucosuria BPH (benign prostatic hyperplasia) Feeling of incomplete bladder emptying Umbilical hernia External bleeding hemorrhoids Rectal bleeding Surgical History History of repair of rotator cuff History of hand surgery History of bunionectomy History of fusion of cervical spine History of rectal surgery Family History Father No problems noted. Mother Renal failure Heart disease Sister Diabetes Social History Housing: House Patient Tobacco Use Status: Never used Tobacco e-Cigarette/Vaping Use: Never Used Second Hand Smoke Exposure: No service: No Current occupational status: employed Cognitive needs: No Hearing needs: No Vision needs: No Questionnaire PHQ-9 Over the last 2 weeks, how often have you been bothered by any of the following problems? 1. Little interest or pleasure in doing things: not at all 2. Feeling down, depressed, or hopeless: not at all 3. Trouble falling or staying asleep, or sleeping too much: not at all 4. Feeling tired or having little energy: not at all 5. Poor appetite or overeating: not at all 6. Feeling bad about yourself - or that you are a failure or have let yourself or your family down: not at all 7. Trouble concentrating on things, such as reading the newspaper or watching television: not at all 8. Moving or speaking so slowly that other people could have noticed. Or the opposite - being so fidgety or restless that you have been moving around a lot more than usual: not at all 9. Thoughts that you would be better off or of hurting yourself in some way: not at all Total score: 0 Depression Screening Interpretation: Negative Depression Screening Done: Yes 53172 - PHQ-9 Billing: Yes Source: Developed by Drs. Blaine Glass, Savita Larkin, Mason Rosa and colleagues, with an educational jerrod from [employer]. Thrive Questionnaire Date Thrive assessed: 10/16/23 I am a: Patient What is your living situation today?: I have a steady place to live Within the past 12 months, did the food you bought not last and you didn't have the money to get more?: Never true Within the past 12 months, did you worry whether your food would run out before you got money to buy more?: Never true Do you have trouble paying for medicines?: No Do you have trouble getting transportation to medical appointments?: No Do you have trouble paying your heating and electricity bill?: No Do you have trouble taking care of your child, family member or friend?: No Do you have trouble with day-to-day activities such as bathing, preparing meals, shopping, managing finances, etc.?: No Are you currently unemployed and looking for a job?: No Are you interested in more education?: No Please select the resources that you would like help with: None THRIVE Score: 0 AUDIT C Alcohol Use Questionnaire (AUDIT-C) 1. How often do you have a drink containing alcohol?: Never Total Score: 0 Score Reviewed/Action Taken: Yes BRYAN-7 AMB Questionnaire BRYAN-7 Date BRYAN - 7 assessed: 10/16/23 Feeling nervous, anxious, or on edge: 0 = Not at all Not being able to stop or control worryin = Not at all Worrying too much about different things: 0 = Not at all Trouble relaxin = Not at all Being so restless that it is hard to sit still: 0 = Not at all Becoming easily annoyed or irritable: 0 = Not at all Feeling afraid as if something awful might happen: 0 = Not at all Total BRYAN-7 score (0-4 normal; 5-9 mild; 10-14 moderate; 15-21 severe): 0 Source: Developed by Drs. Blaine Glass, Savita Larkin, Mason Rosa and colleagues, with an educational jerrod from [employer]. Review of Systems Const Denies chills, Denies headache(s) and Denies weight loss ENT Denies headache(s) Card Denies chest pain, Denies syncope, Denies irregular heart rhythm and Denies dyspnea Resp Denies chest congestion, Denies cough and Denies dyspnea GI Denies abdominal pain, Denies change in stool character, Denies nausea and Denies vomiting Musc Denies deformity and Denies joint swelling Neuro Denies syncope and Denies headache(s) Physical exam (Primary Care) Vital Signs: Last Vital Signs Pulse 89 10/16/23 14:16 BP 142/84 H 10/16/23 14:16 Pulse Ox 99 10/16/23 14:16 Oxygen Delivery Method Room Air 10/16/23 14:16 BMI result Body Mass Index 33.7 Tobacco/Smoking Status: Tobacco use Status Tobacco use date assessed 10/16/23 10/16/23 14:17 Patient Tobacco Use Status Never used Tobacco 10/16/23 14:17 e-Cigarette/Vaping Use Never Used 10/16/23 14:17 PHQ-9: PHQ-9 Score PHQ-9: Total score 0 10/16/23 14:17 Depression Screening Interpretation: Negative Thrive Assessment: Date of Thrive Assessment Date Thrive assessed 10/16/23 10/16/23 14:17 Const General: cooperative, comfortable, no acute distress and alert Neck Neck: Yes no lymphadenopathy Thyroid: Thyroid normal Resp Effort & Inspection: normal respiratory effort Auscultation: clear to auscultation bilaterally Percussion: percussion normal Cardio Jugular venous distension: no JVD Palpation: normal PMI Rate: regular rate Rhythm: regular rhythm Heart sounds: S1 normal heart sound present and S2 normal heart sound present GI Inspection: Yes normal to inspection Palpation (GI): No hepatosplenomegaly present Skin General skin exam: no rashes or lesions noted Extrem General: Yes no clubbing, cyanosis or edema Assessment and Plan Assessment & Plan (1) Low back pain: Code(s): M54.50 - Low back pain, unspecified Plan: ref PT Orders: Orders PT Evaluation and Treatment Today M54.50 - Low back pain, unspecified Coding Level of Care Code Est Pt Level 3 (19371) Diagnoses Low back pain M54.50
== END 2023-10-16 14:37 | disposition home or self-care (01) ==
PROVIDERS: PCP Internal Medicine; Visit Provider Internal Medicine
DX: M54.50 Low back pain, unspecified (principal)
CPT/HCPCS: 99213

== ENCOUNTER 2023-12-11 10:00 | Outpatient (RCR) | payer MEDICARE, MEDICAID, SELFPAY ==
--- NOTE | 2023-11-19 13:30 | MHC.PT.EP ---
[facility] [place] Office [place] Office [place] [facility] [address] J Carlos Oliveros [address] [phone] F: [phone] F: [phone] F: [phone] F: [phone] Physical Therapy Plan of Care Date of Evaluation: 11/19/23 Date of Surgery: Diagnosis: low back pain (MD Dx) (RS) Assessment: Patient is a pleasant 68 y.o. male who is referred to PT by Dr. Abhishek Terrell MD with Dx of low back pain. There is no imaging to confirm alternative diagnosis for low back, but it is not testing as a disc issue during session but he does reports occasional radicular sxs in R LE that is positional. Patient impairments include limited ROM, weakness in hips and core, antalgic gait. Patient current functional limitations are prolonged sitting, bending, sleeping (R side), putting on pants (has to hold on). Patient will benefit from skilled PT to address aforementioned impairments and functional limitations to meet established goals. Frequency and Duration: The patient will be seen 1-2x/week for 4 weeks Short Term Goals: 2 weeks Patient demonstrates consistency and independence with HEP to self manage symptoms. Proof Inspector Goals: 4 weeks Patient presents with increased glute med strength on R 4+/5 to be able to put on pants without difficulty. Patient presents with increased R hip flexion strength 5/5 to be able to bend/squat to floor to lift things in home. Treatment Plan: Modalities to reduce pain, spasms and effusion. Manual therapy to restore motion and function. Therapeutic exercise to improve strength and flexibility. Neuromuscular re-education for posture and balance. Therapeutic activities to return to functional activities of daily living. Electronically signed by: Artie Cancino, PT, DPT Please sign and return to therapist. Thank you for your referral.
--- NOTE | 2024-02-04 15:39 | MHC.PT.DC ---
[facility] [place] Office [place] Office [place] Office [address] J Carlos Oliveros [address] [phone] F: [phone] F: [phone] F: [phone] F: [phone] Physical Therapy Discharge Report Diagnosis: low back pain ( Dx) (RS) Date of Surgery: Date of Evaluation: 11/19/23 Date of Discharge: 02/04/24 Treatments to Date: 3 Cancellations to Date: 1 No Shows to Date: 1 Discharge Status: Visit Non-compliance Discharge Summary: Pt was last treated in PT on 12/11/23, the assessment reads, Jaime comes to therapy today and was introduced more table back and core exercises with an updated HEP with good understanding from patient. Patient tolerated all exercises today with no onset discomfort. He canceled or did not show to his last scheduled PT visits and is therefore discharged for non compliance with attendance. Electronically signed by: Artie Cancino, PT, DPT Please sign and return to therapist. Thank you for your referral.
== END 2024-02-04 15:40 | disposition home or self-care (01) ==
LOC: HO.PT 10:00
PROVIDERS: PCP Internal Medicine; Visit Provider Internal Medicine
DX: M54.50 Low back pain, unspecified (principal)
CPT/HCPCS: 97110; 97161

== ENCOUNTER 2024-01-25 08:16 | Outpatient (REF) | payer MEDICARE, MEDICAID, SELFPAY ==
[2024-01-25 09:47] LABS: Estimated Average Glucose 200 mg/dL; Hemoglobin A1c % 8.6 % (<6.0)
[2024-01-25 09:51] LABS: Cholesterol 149 mg/dL (<200); Glucose Fasting 152 mg/dL (60-99); HDL Cholesterol 36 mg/dL (>40); LDL Cholesterol Calculated 75 mg/dL (<100); Triglycerides 192 mg/dL (<150)
== END 2024-01-25 08:17 | disposition home or self-care (01) ==
LOC: HO.LAB 08:16
PROVIDERS: PCP Internal Medicine; Visit Provider Internal Medicine
DX: R73.9 Hyperglycemia, unspecified (principal); E78.5 Hyperlipidemia, unspecified
CPT/HCPCS: 36415; 80061; 82947; 83036

== ENCOUNTER 2024-01-29 08:59 | Outpatient (AMB) | payer MEDICARE, MEDICAID, SELFPAY ==
[2024-01-29 09:02] VITALS: BP 148/82; PULSE 80; O2SAT 98; BMI 33.9
--- NOTE | 2024-01-29 09:02 | A.OFFPC_ITS ---
Vital Signs 01/29/24 09:02 Height 5 ft 11 in Weight 243 lb BMI 33.9 BP 148/82 H Blood Pressure Location Lt brachial Position Sitting Pulse 80 Pulse Source Pulse Oximeter Pulse Oximetry (%) 98 Oxygen Delivery Method Room Air Intake Visit Reasons: Annual Exam/ A1C check Playground Official Required: No Ceo & Founder: Not Required per policy Accompanied by: Self / Same As Patient Allergies morphine [MORPHINE] Allergy (Intermediate, Verified 01/29/24 09:02) ITCHING, Itchy/hives sulfamethoxazole [From BACTRIM] Allergy (Mild, Verified 01/29/24 09:02) BLISTERS trimethoprim [From BACTRIM] Allergy (Mild, Verified 01/29/24 09:02) BLISTERS Medication List - Last Reconciled 01/29/24 by Abhishek Terrell MD lisinopril 20 mg PO DAILY metformin 1,000 mg PO BID 90 days tadalafil 5 mg PO DAILY 90 days terazosin 10 mg PO DAILY 90 days Tobacco use date assessed: 10/16/23 Fall risk assessment: No Falls in past year Last assessed Fall Risk: 01/29/24 Dental Screening Dental Screen Date: 10/16/23 HPI Annual Exam/ A1C check HPI Details HTN DM and BPH; DM in poor control; not compliant with diet and exercise PFSH Medical History Erectile dysfunction Obesity Diabetes mellitus, type II Cervical herniated disc Erectile dysfunction due to arterial insufficiency Glucosuria BPH (benign prostatic hyperplasia) Feeling of incomplete bladder emptying Umbilical hernia External bleeding hemorrhoids Rectal bleeding Surgical History History of repair of rotator cuff History of hand surgery History of bunionectomy History of fusion of cervical spine History of rectal surgery Family History Father No problems noted. Mother Renal failure Heart disease Sister Diabetes Social History Housing: House Patient Tobacco Use Status: Never used Tobacco e-Cigarette/Vaping Use: Never Used Second Hand Smoke Exposure: No service: No Current occupational status: employed Cognitive needs: No Hearing needs: No Vision needs: No Questionnaire Thrive Questionnaire Date Thrive assessed: 10/16/23 BRYAN-7 AMB Questionnaire BRYAN-7 Date BRYAN - 7 assessed: 10/16/23 Source: Developed by Drs. Blaine Glass, Savita Larkin, Mason Rosa and colleagues, with an educational jerrod from [employer]. Review of Systems Const Denies chills, Denies fatigue, Denies headache(s) and Denies weight loss Eyes Denies change in vision, Denies diplopia and Denies eye pain ENT Denies vertigo, Denies dizziness, Denies headache(s) and Denies nasal discharge Card Denies chest pain, Denies rapid heart rate and Denies dyspnea on exertion Resp Denies chest congestion, Denies cough, Denies pain with cough and Denies dyspnea on exertion GI Denies abdominal pain, Denies hematochezia and Denies change in bowel habits Musc Denies myalgias, Denies arthralgias and Denies joint swelling Skin/Breast Denies lesions and Denies unusual bruising Neuro Denies vertigo, Denies dizziness, Denies headache(s) and Denies focal weakness Endo Denies fatigue Physical exam (Primary Care) Vital Signs: Last Vital Signs Pulse 80 01/29/24 09:02 BP 148/82 H 01/29/24 09:02 Pulse Ox 98 01/29/24 09:02 Oxygen Delivery Method Room Air 01/29/24 09:02 BMI result Body Mass Index 33.9 Tobacco/Smoking Status: Tobacco use Status Tobacco use date assessed 10/16/23 01/29/24 09:02 Patient Tobacco Use Status Never used Tobacco 01/29/24 09:02 e-Cigarette/Vaping Use Never Used 01/29/24 09:02 Thrive Assessment: Date of Thrive Assessment Date Thrive assessed 10/16/23 01/29/24 09:02 Const General: cooperative, healthy appearing and no acute distress Orientation/consciousness: oriented to person, oriented to place and oriented to time HENWI Head: Yes normal to inspection, Yes normocephalic and Yes atraumatic Mouth: Normal oral and palatal mucosa present and tongue normal Throat: Yes posterior oropharynx normal and Yes uvula midline Eyes General: appearance normal, both eyes and all related structures Neck Neck: Yes normal visual inspection, Yes full ROM and Yes no lymphadenopathy Thyroid: Thyroid normal Carotids: normal carotid upstroke Chest Chest palpation & inspection: normal inspection of the chest Resp Effort & Inspection: normal respiratory effort and able to speak in complete sentences Auscultation: clear to auscultation bilaterally Cardio Jugular venous distension: no JVD Palpation: normal PMI Rate: regular rate Rhythm: regular rhythm Heart sounds: S1 normal heart sound present and S2 normal heart sound present GI Inspection: Yes normal to inspection Palpation (GI): Soft to palpation and No hepatosplenomegaly present Auscultation: normal bowel sounds General: Yes no CVA tenderness Back/Spine/Pelvis Back: no CVA tenderness Skin General skin exam: no rashes or lesions noted Neuro General: oriented to person, oriented to place and oriented to time Extrem General: Yes normal to inspection and Yes full ROM Assessment and Plan Assessment & Plan (1) Physical exam: Code(s): Z00.00 - Encounter for general adult medical examination without abnormal findings Plan: do labs (2) Hypertension: Code(s): I10 - Essential (primary) hypertension Plan: stable; same rx (3) BPH w urinary obs/LUTS: Code(s): N40.1 - Benign prostatic hyperplasia with lower urinary tract symptoms; N13.8 - Other obstructive and reflux uropathy Plan: sees urology (4) Diabetes mellitus with coincident hypertension: Code(s): E11.9 - Type 2 diabetes mellitus without complications; I10 - Essential (primary) hypertension Plan: add rx Orders: Orders XR knee LT 2V Today M25.569 - Pain in unspecified knee Hemoglobin A1c Today R73.9 - Hyperglycemia, unspecified Glucose Fasting Today R73.9 - Hyperglycemia, unspecified Medications: New glyburide 5 mg PO DAILY 90 tabs 3RF Coding Level of Care Code Est Pt Prev Care >65y(59184) Diagnoses Physical exam Z00.00 Hypertension I10 BPH w urinary obs/LUTS N40.1; N13.8 Diabetes mellitus with coincident hypertension E11.9; I10
== END 2024-01-29 09:25 | disposition home or self-care (01) ==
PROVIDERS: PCP Internal Medicine; Visit Provider Internal Medicine
DX: Z00.00 Encounter for general adult medical examination without abnormal findings (principal); E11.9 Type 2 diabetes mellitus without complications; I10 Essential (primary) hypertension; N13.8 Other obstructive and reflux uropathy; N40.1 Benign prostatic hyperplasia with lower urinary tract symptoms
CPT/HCPCS: 99397

== ENCOUNTER 2024-04-21 11:10 | Outpatient (AMB) | payer MEDICARE, MEDICAID, SELFPAY ==
--- NOTE | 2024-04-21 11:11 | A.OFFVIS_ITS ---
Intake Visit Reasons: 6M Follow up-PVR Intake Note: Patient presents to the office today for a 6 month follow up/PVR Current Medication: Tadalafil, Terazosin Blood Thinners: none Post Void Residual: 10mL Allergies morphine [MORPHINE] Allergy (Intermediate, Verified 06/18/24 08:44) ITCHING, Itchy/hives sulfamethoxazole [From BACTRIM] Allergy (Mild, Verified 06/18/24 08:44) BLISTERS trimethoprim [From BACTRIM] Allergy (Mild, Verified 06/18/24 08:44) BLISTERS Medication List - Last Reconciled 04/21/24 by Luis Soriano MD glyburide 5 mg PO DAILY lisinopril 20 mg PO DAILY metformin 1,000 mg PO BID 90 days tadalafil 5 mg PO DAILY 90 days terazosin 10 mg PO DAILY 90 days HPI Comments Details: Jaime Liu is a very pleasant male. He is a patient of Dr Wei. He is seen for the following urologic conditions. - lower urinary tract symptoms - erectile dysfunction - Peyronie's disease Six-month follow-up - daily tadalafil with on demand sildenafil Effective response for erections Refill provided Six week follow-up testosterone Peyronie's disease Ventral curve in midline reported Stable with minimal impact on intercourse Lower Urinary Tract Symptoms: Current visit is for further evaluation of, lower urinary tract symptoms, predominate obstructive symptoms. Current treatment includes medication, alpha john, , terazosin 10 mg. Prior treatments include medication, 5-alpha reductase, finasteride - low PSA. Prostate Symptom Score Moderate (9-19), Bother 2. Symptoms include incomplete emptying, weak stream, nocturia (>2), and are improving. Results from testing include cystoscopy Trilobar hypertrophy Prior Prostate Score moderate. PSA PSA 10/26 1.0, 12/26 PSA 1.9, 12/28 2.8, 05/31 2.2, 06/01 2.7 Prostate volume 30-50gm. Associated conditions diabetes Yes Testing at next visit will include bladder scan, uroflow, Prostate Symptom Score. Treatment plan - terazosin 10 mg in the evening Prescription provided. Erectile dysfunction Progressive Background type 2 diabetic Current sugar control HbA1c 7.6, 01/30 8.6% Headache with sildenafil Use of tadalafil [facility] Medical History Erectile dysfunction Obesity Diabetes mellitus, type II Cervical herniated disc Erectile dysfunction due to arterial insufficiency Glucosuria BPH (benign prostatic hyperplasia) Feeling of incomplete bladder emptying Umbilical hernia External bleeding hemorrhoids Rectal bleeding Surgical History History of repair of rotator cuff History of hand surgery History of bunionectomy History of fusion of cervical spine History of rectal surgery Family History Father No problems noted. Mother Renal failure Heart disease Sister Diabetes Social History Housing: House Patient Tobacco Use Status: Never used Tobacco e-Cigarette/Vaping Use: Never Used Second Hand Smoke Exposure: No service: No Current occupational status: employed Cognitive needs: No Hearing needs: No Vision needs: No Review of Systems Const Denies chills and Denies fever(s) Card Reports no additional complaints and Denies syncope Resp Denies cough GI Denies abdominal pain and Denies heartburn Reports as per HPI and Denies change in libido Neuro Denies syncope Psych Denies change in libido Endo Denies change in libido Physical Exam Const General: cooperative, healthy appearing, comfortable and no acute distress Orientation/consciousness: patient oriented x3 HEENT Face and sinus: Yes normal facial exam Mouth: moist mucous membranes Neck Neck: Yes normal visual inspection, Yes full ROM and Yes trachea midline Chest Chest palpation & inspection: normal inspection of the chest Resp Effort & Inspection: normal respiratory effort, able to speak in complete sentences and no respiratory distress GI Inspection: Yes normal to inspection Back/Spine/Pelvis Cervical Spine: normal cervical lordosis Thoracic/Lumbar Spine: thoracic and lumbar spine normal to inspection Skin General skin exam: no rashes or lesions noted Neuro General: patient oriented x3, gait normal, tone normal and moves all extremities Extrem General: Yes normal to inspection and Yes capillary refill normal Office Procedures Post Void Residual Post Residual Void Post Void Residual (PVR): 10 [id number]-[id number] Void Residual by ultrasound Results AMB Urinalysis, Automated UA Leukoctes 0 Marlen/uL Last Edit by Atiya Hirsch CMA on 04/21/24 11:23 UA Nitrite Negative Last Edit by Atiya Hirsch CMA on 04/21/24 11:23 UA Urobilinogen 0.2 mg/dL Last Edit by Atiya Hirsch CMA on 04/21/24 11:23 UA Protein 0 mg/dL Last Edit by Atiya Hirsch CMA on 04/21/24 11:23 UA pH 5.5 Last Edit by Atiya Hirsch CMA on 04/21/24 11:23 UA Blood 0 Calos/uL Last Edit by Atiya Hirsch CMA on 04/21/24 11:23 UA Specific [place] 1.020 Last Edit by Atiya Hirsch CMA on 04/21/24 11:23 UA Ketone Negative Last Edit by Atiya Hirsch CMA on 04/21/24 11:23 UA Bilirubin 0 mg/dL Last Edit by Atiya Hirsch CMA on 04/21/24 11:23 UA Glucose 0 mg/dL Last Edit by Atiya Hirsch CMA on 04/21/24 11:23 Results Reviewed Results Reviewed: Laboratory Last Values Urine pH (Auto) 5.5 04/21/24 11:21 Specific [place] (Auto) 1.020 04/21/24 11:21 Urine Protein (Auto) 0 mg/dL 04/21/24 11:21 Glucose (UA)(Auto) 0 mg/dL 04/21/24 11:21 Urine Ketones (Auto) Negative 04/21/24 11:21 Urine Blood (Auto) 0 Calos/uL 04/21/24 11:21 Urine Nitrite (Auto) Negative 04/21/24 11:21 Urine Bilirubin (Auto) 0 mg/dL 04/21/24 11:21 Urine Urobilinogen (Auto) 0.2 mg/dL 04/21/24 11:21 Leukocyte Esterase (Auto) 0 Marlen/uL 04/21/24 11:21 Assessment & Plan Assessment & Plan (1) Low libido: Code(s): R68.82 - Decreased libido Category: Medical (2) Erectile dysfunction associated with type 2 diabetes mellitus: Code(s): E11.69 - Type 2 diabetes mellitus with other specified complication; N52.1 - Erectile dysfunction due to diseases classified elsewhere Category: Medical Plan Take baseline labs Orders: Orders AMB Post Void Residual by ultrasound 04/21/24 N40.1 - Benign prostatic hyperplasia with lower urinary tract symptoms, R33.9 - Retention of urine, unspecified Testosterone, Free/Total 04/21/24 R68.82 - Decreased libido AMB Urinalysis Automated 04/21/24 Z13.9 - Encounter for screening, unspecified Medications: Refilled tadalafil 5 mg PO DAILY 90 tabs 1RF sexual activity 90 days E11.69 - Type 2 diabetes mellitus with other specified complication, N52.1 - Erectile dysfunction due to diseases classified elsewhere sildenafil administer 60 minutes before intended activity 100 mg PO DAILY PRN 30 tabs 1RF sexual activity 30 days N52.9 - Male erectile dysfunction, unspecified Patient Instructions: Imaging studies, laboratory and physical exam results were discussed and reviewed in detail. No major barriers to patient understanding were identified. An opportunity to ask questions regarding the treatment plan was provided. All questions were answered. The patient expressed understanding and agreement with the above treatment plan. The patient is aware they should contact our office by phone for worsening of their current condition or the appearance of new urologic symptoms. Compliance is encouraged with any medications and followup testing that is ordered. It is a privilege to participate in the urologic care of your patient. If you have any questions or concerns regarding treatment for the above conditions, or other urologic issues, please do not hesitate to contact me. The office telephone contact is [phone]. This note is constructed using voice recognition software. While every effort has been made to ensure accuracy field cashier errors may have been included. Yours sincerely, Dr Luis Soriano MD, [facility] - Urology Providers of Expert, Compassionate Care for the Genitourinary System Coding Level of Care Code Est Pt Level 3 (79990) Diagnoses Low libido R68.82 Erectile dysfunction associated with type 2 diabetes mellitus E11.69; N52.1 CPT Codes Post Residual Void - PVR CPT Code: 17253-Txkg Void Residual by ultrasound ([id number])
== END 2024-04-21 11:52 | disposition home or self-care (01) ==
PROVIDERS: PCP Internal Medicine; Visit Provider Urology
DX: R68.82 Decreased libido (principal); E11.69 Type 2 diabetes mellitus with other specified complication; N52.1 Erectile dysfunction due to diseases classified elsewhere
CPT/HCPCS: 99213

== ENCOUNTER → 2024-04-21 11:10 | Outpatient (BNVA) | payer MEDICARE, MEDICAID, SELFPAY | PROVIDERS: PCP Internal Medicine; Visit Provider Urology | DX: E11.69 Type 2 diabetes mellitus with other specified complication (principal); N52.1 Erectile dysfunction due to diseases classified elsewhere; R68.82 Decreased libido | CPT/HCPCS: 51798; 81003; 99212 ==

== ENCOUNTER 2024-05-30 08:25 | Outpatient (REF) | payer MEDICARE, MEDICAID, SELFPAY ==
[2024-06-05 16:19] LABS: Testosterone, Free 44.2 pg/mL (35.0-155.0); Testosterone, Total 220 ng/dL (250-1100)
== END 2024-05-30 08:26 | disposition home or self-care (01) ==
LOC: HO.LAB 08:25
PROVIDERS: PCP Internal Medicine; Visit Provider Urology
DX: R68.82 Decreased libido (principal)
CPT/HCPCS: 36415; 84402; 84403

== ENCOUNTER 2024-06-18 08:29 | Outpatient (AMB) | payer MEDICARE, SELFPAY ==
--- NOTE | 2024-06-18 08:29 | A.OFFVIS_ITS ---
Intake Visit Reasons: 6W Follow Up-Testosterone(set) Intake Note: Patient presents today for tele visit follow up on testosterone labs Testosterone: 220; Free Testosterone: 44.2 Current Medication: Tadalafil Blood Thinners: none Admitting Officer Required: No Accompanied by: Self / Same As Patient Allergies morphine [MORPHINE] Allergy (Intermediate, Verified 06/18/24 08:44) ITCHING, Itchy/hives sulfamethoxazole [From BACTRIM] Allergy (Mild, Verified 06/18/24 08:44) BLISTERS trimethoprim [From BACTRIM] Allergy (Mild, Verified 06/18/24 08:44) BLISTERS HPI Comments Details: Jaime Liu is a very pleasant male. He is a patient of Dr Wei. He is seen for the following urologic conditions. - lower urinary tract symptoms - erectile dysfunction - Peyronie's disease - hypogonadism Telemedicine Evaluation 15 min Consultation CDP Lui Video Two month follow-up Low testosterone Discussed testosterone replacement Given age would initiate testosterone gel Discussed application Repeat testosterone now and in 8 weeks Three-month follow-up office Peyronie's disease Ventral curve in midline reported Stable with minimal impact on intercourse Lower Urinary Tract Symptoms: Current visit is for further evaluation of, lower urinary tract symptoms, predominate obstructive symptoms. Current treatment includes medication, alpha john, , terazosin 10 mg. Prior treatments include medication, 5-alpha reductase, finasteride - low PSA. Prostate Symptom Score Moderate (9-19), Bother 2. Symptoms include incomplete emptying, weak stream, nocturia (>2), and are improving. Results from testing include cystoscopy Trilobar hypertrophy Prior Prostate Score moderate. PSA PSA 10/26 1.0, 12/26 PSA 1.9, 12/28 2.8, 05/31 2.2, 06/01 2.7 Prostate volume 30-50gm. Associated conditions diabetes Yes Testing at next visit will include bladder scan, uroflow, Prostate Symptom Score. Treatment plan - terazosin 10 mg in the evening Prescription provided. Erectile dysfunction Progressive Background type 2 diabetic Current sugar control HbA1c 7.6, 01/30 8.6% 06/02 T 220 F 44 Headache with sildenafil Use of tadalafil PFSH Medical History Erectile dysfunction Obesity Diabetes mellitus, type II Cervical herniated disc Erectile dysfunction due to arterial insufficiency Glucosuria BPH (benign prostatic hyperplasia) Feeling of incomplete bladder emptying Umbilical hernia External bleeding hemorrhoids Rectal bleeding Surgical History History of repair of rotator cuff History of hand surgery History of bunionectomy History of fusion of cervical spine History of rectal surgery Family History Father No problems noted. Mother Renal failure Heart disease Sister Diabetes Social History Housing: House Patient Tobacco Use Status: Never used Tobacco e-Cigarette/Vaping Use: Never Used Second Hand Smoke Exposure: No service: No Current occupational status: employed Cognitive needs: No Hearing needs: No Vision needs: No Review of Systems Const All systems reviewed & are unremarkable except as noted in HPI and below Reports no additional complaints Resp Reports no additional complaints GI Reports no additional complaints Reports as per HPI Musc Reports no additional complaints Physical Exam Telemedicine evaluation Appropriate responses Regular breathing rate and rhythm HEENT Head: Yes normal to inspection Ears: hearing grossly normal bilaterally Eyes General: appearance normal, both eyes and all related structures Neck Neck: Yes normal visual inspection Chest Chest palpation & inspection: normal inspection of the chest Resp Effort & Inspection: normal respiratory effort and able to speak in complete sentences Telehealth Telehealth Telehealth Platform: [facility] Location of provider rendering services: practice address Location of patient: address on file Patient Identification confirmed using: Name, : Yes Telehealth method: video Patient verbally consented to treatment: Yes Patient verbally consented to billing insurance company: Yes Patient informed of any privacy concerns related to visit: Yes Minutes spent on Phone/Video with Pt.: 15 Assessment & Plan Assessment & Plan (1) Hypogonadism in male: Code(s): E29.1 - Testicular hypofunction Category: Medical Plan Three-month follow-up office Orders: Orders Testosterone, Free/Total 2 Months E29.1 - Testicular hypofunction Testosterone, Total Today C61 - Malignant neoplasm of prostate, E29.1 - Testicular hypofunction Medications: New testosterone Apply to shoulder and rub in until dry 1 packet transdermal DAILY 30 days 150 grams 5RF E29.1 - Testicular hypofunction Patient Instructions: Imaging studies, laboratory and physical exam results were discussed and reviewed in detail. No major barriers to patient understanding were identified. An opportunity to ask questions regarding the treatment plan was provided. All questions were answered. The patient expressed understanding and agreement with the above treatment plan. The patient is aware they should contact our office by phone for worsening of their current condition or the appearance of new urologic symptoms. Compliance is encouraged with any medications and followup testing that is ordered. It is a privilege to participate in the urologic care of your patient. If you have any questions or concerns regarding treatment for the above conditions, or other urologic issues, please do not hesitate to contact me. The office telephone contact is [phone]. This note is constructed using voice recognition software. While every effort has been made to ensure accuracy natural gas plant supervisor errors may have been included. Yours sincerely, Dr Luis Soriano MD, [facility] - Urology Providers of Expert, Compassionate Care for the Genitourinary System Coding Level of Care Code Tele Est Pt Level 4 (02270) Diagnoses Hypogonadism in male E29.1
== END 2024-06-18 11:04 | disposition home or self-care (01) ==
LOC: HO.HUSH 08:29
PROVIDERS: PCP Internal Medicine; Visit Provider Urology
DX: E29.1 Testicular hypofunction (principal)
CPT/HCPCS: 99213

== ENCOUNTER → 2024-06-18 08:29 | Outpatient (BNVA) | payer MEDICARE, SELFPAY | PROVIDERS: PCP Internal Medicine; Visit Provider Urology ==

== ENCOUNTER 2024-08-01 09:29 | Outpatient (REF) | payer MEDICARE, SELFPAY ==
[2024-08-01 10:45] LABS: Estimated Average Glucose 146 mg/dL; Hemoglobin A1C 153.2184 umol/L; Hemoglobin A1c % 6.7 % (<6.0); Total Hemoglobin (HGBA1C) 3085.0928 umol/L
[2024-08-01 10:52] LABS: Glucose Fasting 106 mg/dL (60-99)
== END 2024-08-01 09:30 | disposition home or self-care (01) ==
LOC: HO.LAB 09:29
PROVIDERS: PCP Internal Medicine; Visit Provider Internal Medicine
DX: R73.9 Hyperglycemia, unspecified (principal)
CPT/HCPCS: 36415; 82947; 83036

== ENCOUNTER 2024-09-10 15:22 | Outpatient (AMB) | payer MEDICARE, SELFPAY ==
--- NOTE | 2024-09-10 15:35 | AM.OFFVISNUR ---
Intake Visit Reasons: Flu Vaccine Allergies morphine [MORPHINE] Allergy (Intermediate, Verified 06/18/24 08:44) ITCHING, Itchy/hives sulfamethoxazole [From BACTRIM] Allergy (Mild, Verified 06/18/24 08:44) BLISTERS trimethoprim [From BACTRIM] Allergy (Mild, Verified 06/18/24 08:44) BLISTERS Office Procedures Flu Questionnaire Does the patient have a severe egg allergy?: No Does the patient have severe life threatening allergies?: No Does the patient have a fever or illness today?: No Has the patient ever had Guillain-Orinda Syndrome?: No Has the patient ever had any past reaction to a flu shot?: No Immunizations Fluarix Triv [id number] (PF) 45 mcg (15 mcg x 3)/0.5 mL IM syringe Performing Provider: Abhishek Terrell MD [facility] Administered by: Yaritza Sewell LPN on 09/10/24 15:35 Dose Route Admin Location Dispensed Lot Number Expiration Date [facility] [employer] Computer Scientist 0.5 mL IM Left Deltoid 0.5 mL [id number] 03/08/25 [id number] [employer] VIS Given Date VIS Provided VIS Publication Date 09/10/24 Single Vaccine 21 Eligibility Eligibility Date Funding Source Not [facility] Eligible 09/10/24 Private Assessment & Plan Assessment & Plan Orders: Orders Influenza [id number] Immunization Today Z23 - Encounter for immunization Medications: New Fluarix Triv (PF) (flu vacc [id number] 6mos up(PF)) 0.5 mL IM ONCE 0.5 mL 0RF NS Z23 - Encounter for immunization
== END 2024-09-10 15:36 | disposition home or self-care (01) ==
PROVIDERS: PCP Internal Medicine; Visit Provider Internal Medicine
DX: Z23 Encounter for immunization (principal)

== ENCOUNTER → 2024-09-10 15:22 | Outpatient (BNVA) | payer MEDICARE, SELFPAY | PROVIDERS: PCP Internal Medicine; Visit Provider Internal Medicine | DX: Z23 Encounter for immunization (principal) | CPT/HCPCS: 90471; 90656 ==

== ENCOUNTER 2024-12-28 08:43 | Outpatient (REF) | payer OTHER, SELFPAY ==
[2025-01-02 17:43] LABS: Testosterone, Free 32.8 pg/mL (35.0-155.0); Testosterone, Total 212 ng/dL (250-1100)
== END 2024-12-28 08:44 | disposition home or self-care (01) ==
LOC: HO.LAB 08:43
PROVIDERS: Visit Provider Urology
DX: E29.1 Testicular hypofunction (principal)
CPT/HCPCS: 36415; 84402; 84403

== ENCOUNTER 2025-01-19 15:46 | Outpatient (AMB) | payer MEDICARE, SELFPAY ==
--- NOTE | 2025-01-19 15:58 | MHC.OFFVIS ---
Intake Visit Reasons: Testo followup(testo pending) Intake Note: Patient is present for TESTO F/U Urology Medication:TERAZOSIN,SILDENAFIL Antibiotic Allergy:SULFA,BACTRIM Blood Thinner:NONE Underground Supervisor Required: No Allergies morphine [MORPHINE] Allergy (Intermediate, Verified 01/19/25 15:59) ITCHING, Itchy/hives sulfamethoxazole [From BACTRIM] Allergy (Mild, Verified 01/19/25 15:59) BLISTERS trimethoprim [From BACTRIM] Allergy (Mild, Verified 01/19/25 15:59) BLISTERS HPI Comments Details: Jaime Liu is a very pleasant male. He is a patient of Dr Wei. He is seen for the following urologic conditions. - lower urinary tract symptoms - erectile dysfunction - Peyronie's disease - hypogonadism Follow-up from gel administration Two month follow-up Low testosterone Failed trial of gel Switch to injectable Hypogonadism Failed trial of gel - T 212 Baseline - 06/02 Peyronie's disease Ventral curve in midline reported Stable with minimal impact on intercourse Lower Urinary Tract Symptoms: Current visit is for further evaluation of, lower urinary tract symptoms, predominate obstructive symptoms. Current treatment includes medication, alpha john, , terazosin 10 mg. Prior treatments include medication, 5-alpha reductase, finasteride - low PSA. Prostate Symptom Score Moderate (9-19), Bother 2. Symptoms include incomplete emptying, weak stream, nocturia (>2), and are improving. Results from testing include cystoscopy Trilobar hypertrophy Prior Prostate Score moderate. PSA PSA 10/26 1.0, 12/26 PSA 1.9, 12/28 2.8, 05/31 2.2, 06/01 2.7 Prostate volume 30-50gm. Associated conditions diabetes Yes Testing at next visit will include bladder scan, uroflow, Prostate Symptom Score. Treatment plan - terazosin 10 mg in the evening Prescription provided. Erectile dysfunction Progressive Background type 2 diabetic Current sugar control HbA1c 7.6, 01/30 8.6% 06/02 T 220 F 44 Headache with sildenafil Use of tadalafil PFSH Medical History Erectile dysfunction Obesity Diabetes mellitus, type II Cervical herniated disc Erectile dysfunction due to arterial insufficiency Glucosuria BPH (benign prostatic hyperplasia) Feeling of incomplete bladder emptying Umbilical hernia External bleeding hemorrhoids Rectal bleeding Surgical History History of repair of rotator cuff History of hand surgery History of bunionectomy History of fusion of cervical spine History of rectal surgery Family History Father No problems noted. Mother Renal failure Heart disease Sister Diabetes Social History Housing: House Patient Tobacco Use Status: Never used Tobacco e-Cigarette/Vaping Use: Never Used Second Hand Smoke Exposure: No service: No Current occupational status: employed Cognitive needs: No Hearing needs: No Vision needs: No Review of Systems Const Denies chills and Denies fever(s) Card Reports no additional complaints and Denies syncope Resp Denies cough GI Denies abdominal pain and Denies heartburn Reports as per HPI and Denies change in libido Neuro Denies syncope Psych Denies change in libido Endo Denies change in libido Physical Exam Const General: cooperative, healthy appearing, comfortable and no acute distress Orientation/consciousness: patient oriented x3 HEENT Face and sinus: Yes normal facial exam Mouth: moist mucous membranes Neck Neck: Yes normal visual inspection, Yes full ROM and Yes trachea midline Chest Chest palpation & inspection: normal inspection of the chest Resp Effort & Inspection: normal respiratory effort, able to speak in complete sentences and no respiratory distress GI Inspection: Yes normal to inspection Back/Spine/Pelvis Cervical Spine: normal cervical lordosis Thoracic/Lumbar Spine: thoracic and lumbar spine normal to inspection Skin General skin exam: no rashes or lesions noted Neuro General: patient oriented x3, gait normal, tone normal and moves all extremities Extrem General: Yes normal to inspection and Yes capillary refill normal Assessment & Plan Assessment & Plan (1) Erectile dysfunction associated with type 2 diabetes mellitus: Code(s): E11.69 - Type 2 diabetes mellitus with other specified complication; N52.1 - Erectile dysfunction due to diseases classified elsewhere Category: Medical (2) Low libido: Code(s): R68.82 - Decreased libido Category: Medical (3) Hypogonadism in male: Code(s): E29.1 - Testicular hypofunction Category: Medical Plan Trial injectable testosterone Orders: Orders Testosterone, Total 3 Months E29.1 - Testicular hypofunction Medications: New syringe (disposable) (BD Luer-Chana Syringe) Testosterone injection weekly 30 ea 0RF E29.1 - Testicular hypofunction, E34.9 - Endocrine disorder, unspecified needle (disp) 18 G (BD Regular Bevel [place]) As directed - draw up testosterone 30 ea 0RF E29.1 - Testicular hypofunction needle (disp) 23 gauge (BD Regular Bevel [place]) Inject testosterone subcutaneous 30 ea 0RF E29.1 - Testicular hypofunction, R79.89 - Other specified abnormal findings of blood chemistry testosterone cypionate (Depo-Testosterone) 80 mg (0.4 mL) subcut QWEEK 4 weeks 2 mL 2RF E29.1 - Testicular hypofunction Patient Instructions: This note is constructed using voice recognition software. While every effort has been made to ensure accuracy grinding wheel facer errors may have been included. Imaging studies, laboratory and physical exam results were discussed and reviewed in detail. No major barriers to patient understanding were identified. An opportunity to ask questions regarding the treatment plan was provided. All questions were answered. The patient expressed understanding and agreement with the above treatment plan. The patient is aware they should contact our office by phone for worsening of their current condition or the appearance of new urologic symptoms. Compliance is encouraged with any medications and followup testing that is ordered. It is a privilege to participate in the urologic care of your patient. If you have any questions or concerns regarding treatment for the above conditions, or other urologic issues, please do not hesitate to contact me. The office telephone contact is [phone]. Sincerely, Dr Luis Soriano MD, [facility] - Urology Compassionate Specialist Care for the Genitourinary System Coding Level of Care Code Est Pt Level 4 (59273) Complex EM visit Add On G2211 Diagnoses Erectile dysfunction associated with type 2 diabetes mellitus E11.69; N52.1 Low libido R68.82 Hypogonadism in male E29.1
== END 2025-01-19 16:37 | disposition home or self-care (01) ==
LOC: HO.HUSH 15:47
PROVIDERS: PCP Internal Medicine; Visit Provider Urology
DX: E11.69 Type 2 diabetes mellitus with other specified complication (principal); N52.1 Erectile dysfunction due to diseases classified elsewhere; R68.82 Decreased libido; E29.1 Testicular hypofunction
CPT/HCPCS: 99214; G2211

== ENCOUNTER → 2025-01-19 15:46 | Outpatient (BNVA) | payer OTHER, SELFPAY | PROVIDERS: PCP Internal Medicine; Visit Provider Urology | DX: E11.69 Type 2 diabetes mellitus with other specified complication (principal); N52.1 Erectile dysfunction due to diseases classified elsewhere; R68.82 Decreased libido; E29.1 Testicular hypofunction | CPT/HCPCS: 99212 ==

== ENCOUNTER 2025-03-11 15:37 | Outpatient (AMB) | payer OTHER, SELFPAY ==
--- NOTE | 2025-03-11 15:42 | MHC.PC.OV ---
Intake Visit Reasons: AWV/ TO Dr Terrell Allergies morphine (MORPHINE) Allergy (Intermediate, Verified 01/19/25 15:59) ITCHING, Itchy/hives sulfamethoxazole (From BACTRIM) Allergy (Mild, Verified 01/19/25 15:59) BLISTERS trimethoprim (From BACTRIM) Allergy (Mild, Verified 01/19/25 15:59) BLISTERS Tobacco use date assessed: 10/16/23 Dental Screening Dental Screen Date: 10/16/23 [facility] Medical History Erectile dysfunction Obesity Diabetes mellitus, type II Cervical herniated disc Erectile dysfunction due to arterial insufficiency Glucosuria BPH (benign prostatic hyperplasia) Feeling of incomplete bladder emptying Umbilical hernia External bleeding hemorrhoids Rectal bleeding Surgical History History of repair of rotator cuff History of hand surgery History of bunionectomy History of fusion of cervical spine History of rectal surgery Family History Father No problems noted. Mother Renal failure Heart disease Sister Diabetes Social History Housing: House Patient Tobacco Use Status: Never used Tobacco e-Cigarette/Vaping Use: Never Used Second Hand Smoke Exposure: No service: No Current occupational status: employed Cognitive needs: No Hearing needs: No Vision needs: No Questionnaire Thrive Questionnaire Date Thrive assessed: 10/16/23 BRYAN-7 AMB Questionnaire BRYAN-7 Date BRYAN - 7 assessed: 10/16/23 Source: Developed by Drs. Blaine Glass, Savita Larkin, Mason Rosa and colleagues, with an educational jerrod from [facility]. Physical exam (Primary Care) Tobacco/Smoking Status: Tobacco use Status Tobacco use date assessed 10/16/23 01/29/24 09:02 Patient Tobacco Use Status Never used Tobacco 01/29/24 09:02 e-Cigarette/Vaping Use Never Used 01/29/24 09:02 Thrive Assessment: Date of Thrive Assessment Date Thrive assessed 10/16/23 01/29/24 09:02 Coding
[2025-03-11 15:44] VITALS: BP 146/92; PULSE 67; TEMP 36.1; O2SAT 99; BMI 34.9
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
--- NOTE | 2025-03-11 16:24 | A.OFFPC_ITS ---
Vital Signs 03/11/25 15:44 Height 5 ft 11 in Weight 250 lb BMI 34.9 BP 146/92 H Blood Pressure Location Lt brachial Position Sitting Pulse 67 Pulse Source Pulse Oximeter Temp 97.0 F Temp Source Temporal Artery Scan Pulse Oximetry (%) 99 Oxygen Delivery Method Room Air Intake Visit Reasons: TO Dr Terrell Hot Molder Required: No Accompanied by: Self / Same As Patient Allergies morphine (MORPHINE) Allergy (Intermediate, Verified 03/11/25 16:24) ITCHING, Itchy/hives Medication List - Last Reconciled 03/11/25 by JANEY Willis finasteride 5 mg PO DAILY glimepiride 4 mg PO DAILY glyburide 5 mg PO DAILY lisinopril 20 mg PO DAILY metformin 1,000 mg PO BID 90 days needle (disp) 18 G (BD Regular Bevel [place]) As directed - draw up testosterone needle (disp) 23 gauge (BD Regular Bevel [place]) Inject testosterone subcutaneous sildenafil 100 mg PO DAILY PRN 30 days syringe (disposable) (BD Luer-Chana Syringe) Testosterone injection weekly terazosin 10 mg PO BID 90 days testosterone cypionate (Depo-Testosterone) 80 mg (0.4 mL) subcut QWEEK 4 weeks Tobacco use date assessed: 03/11/25 Fall risk assessment: No Falls in past year Last assessed Fall Risk: 03/11/25 Dental Screening Dental Screen Date: 03/11/25 Did you have a dental visit in the last 12 months?: Yes Did you have a dental problem in the last 6 months where you did not have access to dental care?: No Was dental information given to patient?: Patient has dentist HPI TO Dr Terrell HPI Details Reports [facility] Medical History Erectile dysfunction Obesity Diabetes mellitus, type II Cervical herniated disc Erectile dysfunction due to arterial insufficiency Glucosuria BPH (benign prostatic hyperplasia) Feeling of incomplete bladder emptying Umbilical hernia External bleeding hemorrhoids Rectal bleeding Surgical History History of repair of rotator cuff History of hand surgery History of bunionectomy History of fusion of cervical spine History of rectal surgery Family History Father No problems noted. Mother Renal failure Heart disease Sister Diabetes Social History Housing: House Patient Tobacco Use Status: Never used Tobacco e-Cigarette/Vaping Use: Never Used Second Hand Smoke Exposure: No service: No Current occupational status: employed Cognitive needs: No Hearing needs: No Vision needs: No Questionnaire Thrive Questionnaire Date Thrive assessed: 10/16/23 BRYAN-7 AMB Questionnaire BRYAN-7 Date BRYAN - 7 assessed: 10/16/23 Source: Developed by Drs. Blaine Glass, Savita Larkin, Mason Rosa and colleagues, with an educational jerrod from [employer]. Physical exam (Primary Care) Vital Signs: Last Vital Signs Temp 97.0 F 03/11/25 15:44 Pulse 67 03/11/25 15:44 BP 146/92 H 03/11/25 15:44 Pulse Ox 99 03/11/25 15:44 Oxygen Delivery Method Room Air 03/11/25 15:44 BMI result Body Mass Index 34.9 Tobacco/Smoking Status: Tobacco use Status Tobacco use date assessed 10/16/23 01/29/24 09:02 Patient Tobacco Use Status Never used Tobacco 01/29/24 09:02 e-Cigarette/Vaping Use Never Used 01/29/24 09:02 Thrive Assessment: Date of Thrive Assessment Date Thrive assessed 10/16/23 01/29/24 09:02 Results AMB Hemoglobin A1c AMB Hemoglobin A1c 7.1 % Last Edit by Atiya Hirsch CMA on 03/11/25 15:57 Results Reviewed Results Reviewed: Laboratory Last Values Hgb A1c (Clinic) 7.1 % (4.0-6.0) H 03/11/25 15:50 Coding Assessment & Plan Assessment & Plan Orders: Orders AMB Hemoglobin A1c Today Z13.9 - Encounter for screening, unspecified Complete Blood Count Auto Diff 4 Months E11.9 - Type 2 diabetes mellitus without complications, E29.1 - Testicular hypofunction, E66.9 - Obesity, unspecified, I10 - Essential (primary) hypertension, M25.519 - Pain in unspecified shoulder, M54.50 - Low back pain, unspecified, N13.8 - Other obstructive and reflux uropathy, N40.1 - Benign prostatic hyperplasia with lower urinary tract symptoms, Z00.00 - Encounter for general adult medical examination without abnormal findings TSH reflex Free T4 4 Months E11.9 - Type 2 diabetes mellitus without complications, E29.1 - Testicular hypofunction, E66.9 - Obesity, unspecified, I10 - Essential (primary) hypertension, M25.519 - Pain in unspecified shoulder, M54.50 - Low back pain, unspecified, N13.8 - Other obstructive and reflux uropathy, N40.1 - Benign prostatic hyperplasia with lower urinary tract symptoms, Z00.00 - Encounter for general adult medical examination without abnormal findings Hemoglobin A1c 4 Months E11.9 - Type 2 diabetes mellitus without complications, E29.1 - Testicular hypofunction, E66.9 - Obesity, unspecified, I10 - Essential (primary) hypertension, M25.519 - Pain in unspecified shoulder, M54.50 - Low back pain, unspecified, N13.8 - Other obstructive and reflux uropathy, N40.1 - Benign prostatic hyperplasia with lower urinary tract symptoms, Z00.00 - Encounter for general adult medical examination without abnormal findings Comprehensive [place]. Panel Fast 4 Months E11.9 - Type 2 diabetes mellitus without complications, E29.1 - Testicular hypofunction, E66.9 - Obesity, unspecified, I10 - Essential (primary) hypertension, M25.519 - Pain in unspecified shoulder, M54.50 - Low back pain, unspecified, N13.8 - Other obstructive and reflux uropathy, N40.1 - Benign prostatic hyperplasia with lower urinary tract symptoms, Z00.00 - Encounter for general adult medical examination without abnormal findings Lipid Panel 4 Months E11.9 - Type 2 diabetes mellitus without complications, E29.1 - Testicular hypofunction, E66.9 - Obesity, unspecified, I10 - Essential (primary) hypertension, M25.519 - Pain in unspecified shoulder, M54.50 - Low back pain, unspecified, N13.8 - Other obstructive and reflux uropathy, N40.1 - Benign prostatic hyperplasia with lower urinary tract symptoms, Z00.00 - Encounter for general adult medical examination without abnormal findings UA CC w/rflx Micro + Cult 4 Months E11.9 - Type 2 diabetes mellitus without complications, E29.1 - Testicular hypofunction, E66.9 - Obesity, unspecified, I10 - Essential (primary) hypertension, M25.519 - Pain in unspecified shoulder, M54.50 - Low back pain, unspecified, N13.8 - Other obstructive and reflux uropathy, N40.1 - Benign prostatic hyperplasia with lower urinary tract symptoms, Z00.00 - Encounter for general adult medical examination without abnormal findings Vitamin D 25-OH Total 4 Months E11.9 - Type 2 diabetes mellitus without complications, E29.1 - Testicular hypofunction, E66.9 - Obesity, unspecified, I10 - Essential (primary) hypertension, M25.519 - Pain in unspecified shoulder, M54.50 - Low back pain, unspecified, N13.8 - Other obstructive and reflux uropathy, N40.1 - Benign prostatic hyperplasia with lower urinary tract symptoms, Z00.00 - Encounter for general adult medical examination without abnormal findings PSA,Total (Free>4and<10) 4 Months E11.9 - Type 2 diabetes mellitus without complications, E29.1 - Testicular hypofunction, E66.9 - Obesity, unspecified, I10 - Essential (primary) hypertension, M25.519 - Pain in unspecified shoulder, M54.50 - Low back pain, unspecified, N13.8 - Other obstructive and reflux uropathy, N40.1 - Benign prostatic hyperplasia with lower urinary tract symptoms, Z00.00 - Encounter for general adult medical examination without abnor mal findings Medications: New lisinopril 10 mg PO DAILY 90 tabs 2RF On Hold lisinopril Hold Comment: Doctor's Order 20 mg PO DAILY 90 tabs 0RF
== END 2025-03-11 16:46 | disposition home or self-care (01) ==
DX: Z13.9 Encounter for screening, unspecified (principal)

== ENCOUNTER → 2025-03-11 15:37 | Outpatient (BNVA) | payer OTHER, SELFPAY | DX: I10 Essential (primary) hypertension (principal); N40.1 Benign prostatic hyperplasia with lower urinary tract symptoms; N13.8 Other obstructive and reflux uropathy; E29.1 Testicular hypofunction; E66.811 Obesity, class 1; E11.69 Type 2 diabetes mellitus with other specified complication; N52.1 Erectile dysfunction due to diseases classified elsewhere; Z68.34 Body mass index [BMI] 34.0-34.9, adult | CPT/HCPCS: 83036 ==

== ENCOUNTER 2025-03-27 11:48 | Emergency (ER) | payer OTHER, SELFPAY ==
--- NOTE | ~2025-03-27 | XR_ITS ---
CLINICAL HISTORY: pain Three views of the lumbar spine. COMPARISON: None provided. FINDINGS: Five [id number] lumbar type vertebral bodies. Normal vertebral body alignment. Vertebral body heights are maintained. No evidence of acute vertebral body injury. Small marginal osteophytes present throughout the lumbar spine. Facet joint arthrosis in the lower lumbar spine with neural foraminal narrowing at L5-S1. Visualized portions of the bones of the pelvis appear intact. IMPRESSION: 1. No radiographic evidence of acute injury to the lumbar spine. 2. Mild multilevel degenerative changes of the lumbar spine most pronounced at L5-S1. This document has been electronically signed by: Bradley Brown MD on 03/27/2025 13:11:00
[2025-03-27 12:19] VITALS: BP 162/75; PULSE 58; RESP 16; TEMP 36.4; O2SAT 99; BMI 33.5
--- NOTE | 2025-03-27 12:22 | ED.GENADULT ---
HPI - General Adult General Chief complaint: Fall Stated complaint: back pain Time Seen by Provider: 03/27/25 12:51 Source: patient and RN notes reviewed Mode of arrival: ambulatory Limitations: no limitations History of Present Illness ED Provider: Emilia Sy PA-C HPI narrative: This is a 69-year-old male, with a past medical history of hypertension, BPH, who presents emergency department with concerns of low back pain and groin pain. 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 Patient states that since this fall he has had back pain. He states that his pain got better up until several days ago, when he started using the floor stripping machine again. Denies taking any medications at home to treat his current symptoms. He states that the pain does radiate into his inner groin, denies any involvement to genitalia region. No saddle anesthesia. No urinary or bowel retention or incontinence. No weakness. Denies any fevers, chills, chest pain, shortness for breath, abdominal pain, urinary frequency, urgency, or dysuria. No other complaints or concerns at this time. MD complaint: Back pain Onset (ago): day(s) Quality: aching Relieving factors: none Exacerbating factors: none Associated symptoms: denies other symptoms Related Data Previous Rx's ?Medication ?Instructions ?Recorded sildenafil 100 mg tablet 100 mg PO DAILY PRN sexual 04/21/24 activity 30 days #30 tabs needle (disp) 18 G 18 gauge x 1 #30 ea 01/20/25 (BD Regular [place]) needle (disp) 23 gauge 23 gauge x #30 ea 01/20/25 3/4 (BD Regular [place]) syringe (disposable) 1 mL (BD #30 ea 01/20/25 Luer-Chana Syringe) testosterone cypionate 200 mg/mL 80 mg (0.4 mL) subcut QWEEK 4 01/20/25 intramuscular oil weeks #2 mL (Depo-Testosterone) finasteride 5 mg tablet 5 mg PO DAILY #90 tabs 01/21/25 glyburide 5 mg tablet 5 mg PO DAILY #90 tabs 02/08/25 metformin 1,000 mg tablet 1,000 mg PO BID 90 days #180 tabs 02/18/25 lisinopril 20 mg tablet 20 mg PO DAILY #90 tabs 03/10/25 Held on 03/11/25. Instructions: Doctor's Order lisinopril 10 mg tablet 10 mg PO DAILY #90 tabs 03/11/25 terazosin 10 mg capsule 10 mg PO BID 90 days #180 caps 03/25/25 Allergies Allergy/AdvReac Type Severity Reaction Status Date / Time morphine (MORPHINE) Allergy Intermediate ITCHING, Verified 03/27/25 12:22 Itchy/hives Review of Systems Review of Systems: Yes all other systems are reviewed and are negative Constitutional: Constitutional: Reports as per [facility] Past Medical History Attestation statement: The following information was validated with the patient. Medical History Erectile dysfunction Obesity Diabetes mellitus, type II Cervical herniated disc Erectile dysfunction due to arterial insufficiency Glucosuria BPH (benign prostatic hyperplasia) Feeling of incomplete bladder emptying Umbilical hernia External bleeding hemorrhoids Rectal bleeding Surgical History History of repair of rotator cuff History of hand surgery History of bunionectomy History of fusion of cervical spine History of rectal surgery Family History Family History Father No problems noted. Mother Renal failure Heart disease Sister Diabetes Social History Social History Housing: House Patient Tobacco Use Status: Never used Tobacco e-Cigarette/Vaping Use: Never Used Second Hand Smoke Exposure: No Advance Directives: No Advance Directives Information Provided: No service: No Current occupational status: employed Cognitive needs: No Hearing needs: No Vision needs: No Physical Exam ED Vital Signs: Vital Signs - 24 hr 03/27/25 12:19 Temperature 97.6 F Pulse Rate 58 Respiratory Rate 16 Blood Pressure 162/75 H Pulse Oximetry 99 Oxygen Delivery Method Room Air BMI result Body Mass Index 33.5 Const General: cooperative, comfortable and no acute distress Orientation/consciousness: patient oriented x3 Limitations: no limitations HENMT Head: Yes normal to inspection, Yes normocephalic and Yes atraumatic Ears: hearing grossly normal bilaterally General nose exam: Normal external nose present Face and sinus: Yes normal facial exam Mouth: Normal oral and palatal mucosa present, oropharynx normal and moist mucous membranes Throat: Yes posterior oropharynx normal Eyes General: appearance normal, both eyes and all related structures Eyelids: Yes eyelids normal Conjunctivae: conjunctivae normal Sclerae: sclerae normal Pupils: Equal, round and reactive pupils present EOM: EOMs intact bilaterally Neck Neck: Yes normal visual inspection, Yes full ROM and Yes no lymphadenopathy Lymphatic: no lymphadenopathy noted Chest Chest palpation & inspection: normal inspection of the chest Resp Effort & Inspection: normal respiratory effort and able to speak in complete sentences Auscultation: clear to auscultation bilaterally, no crackles, no rales, no rhonchi and no wheezes Cardio Rate: regular rate Rhythm: regular rhythm Heart sounds: S1 normal heart sound present and S2 normal heart sound present GI Inspection: Yes normal to inspection Back/Spine/Pelvis Other: Patient with tenderness palpation along the lumbar midline spine extending into the right SI joint. Patient ambulatory with steady gait, strength 5/5 in lower extremities. Distal sensation circulation intact. Cervical Spine: normal cervical lordosis Skin General skin exam: no rashes or lesions noted Trauma: no lacerations or abrasions Wounds: no wounds Neuro General: patient oriented x3 and moves all extremities Cranial nerves: Yes Equal, round and reactive pupils present Extrem General: Yes normal to inspection Right upper extremity: normal to inspection Left upper extremity: normal to inspection Right lower extremity: normal to inspection Left lower extremity: normal to inspection Course Course Course Narrative: RME, this is a rapid medical exam performed by Felix Thompson please refer to primary provider for complete H&P- patient reports pain to his lower back after falling from standing position 11 days ago. Plan for x-ray of the lumbar spine Medical Decision Making Medical Decision Making [facility] Narrative: This is a 69-year-old male, with a past medical history of hypertension, diabetes, and BPH, who presents emergency department with complaints of back pain status post mechanical fall which occurred 2 weeks ago. On arrival, patient mildly hypertensive at 162/75, all other vital signs within normal limits. This patient presents with back pain most consistent with lumbar back spasm/contusion. Differential diagnoses includes lumbago versus musculoskeletal spasm / strain versus sciatica. No back pain red flags on history or physical. Presentation not consistent with malignancy (lack of history of malignancy, lack of B symptoms), cauda equina syndrome (no bowel or urinary incontinence/retention, no saddle anesthesia, no distal weakness), renal colic, pyelonephritis (afebrile, no CVAT, no urinary symptoms). X-rays were obtained given recent trauma, he has mild multilevel degenerative changes of the lumbar spine, most pronounced in the L5-S1 region. Discussed findings with patient. Patient does not want any medications to be discharged home with. Advised to take [id number] ibuprofen and or Tylenol, can also use lidocaine patches as well. Given strict return precautions. Patient stable for discharge. Differential Diagnosis Differential Diagnoses: The differential diagnosis associated with the presentation includes See above Radiology Impression Discussion of test interpretation with radiology: I have reviewed the radiologist's reading. Radiologist Impression: Three views of the lumbar spine. COMPARISON: None provided. FINDINGS: Five [id number] lumbar type vertebral bodies. Normal vertebral body alignment. Vertebral body heights are maintained. No evidence of acute vertebral body injury. Small marginal osteophytes present throughout the lumbar spine. Facet joint arthrosis in the lower lumbar spine with neural foraminal narrowing at L5-S1. Visualized portions of the bones of the pelvis appear intact. IMPRESSION: 1. No radiographic evidence of acute injury to the lumbar spine. 2. Mild multilevel degenerative changes of the lumbar spine most pronounced at L5-S1. This document has been electronically signed by: Bradley Brown MD on 03/27/2025 13:11:00 Dictated By: Bradley Brown MD Discharge Plan Discharge Clinical Impression: Lumbar strain Patient Disposition: Home, Self-Care Instructions: Muscle Spasm (ED), Back Pain (ED), Lower Back Exercises (ED) Additional Instructions: You were seen in the emergency department due to back pain. Your x-rays performed today revealed degenerative changes. There were no evidence of any acute bony injury from your fall 2 weeks ago. Please rest, apply heat or ice, gentle stretching, or massage can help. You may take ibuprofen and or Tylenol as needed for pain and symptoms. Lidocaine patches can also be helpful. If any new or worsening symptoms occur including but not limited to worsening pain, high fevers, severe chest pain or shortness of breath, please seek emergent care. Prescriptions: No Action finasteride 5 mg tablet 5 mg PO DAILY Qty: 90 1RF glyburide 5 mg tablet 5 mg PO DAILY Qty: 90 0RF metformin 1,000 mg tablet 1,000 mg PO BID 90 Days Qty: 180 0RF lisinopril 20 mg tablet 20 mg PO DAILY Qty: 90 0RF terazosin 10 mg capsule 10 mg PO BID 90 Days Qty: 180 0RF sildenafil 100 mg tablet 100 mg PO DAILY PRN (Reason: sexual activity) 30 Days Qty: 30 1RF Rx Instructions: administer 60 minutes before intended activity (DME) BD Luer-Chana Syringe 1 mL syringe See Rx Instructions .MEDSUPPLY Qty: 30 0RF Rx Instructions: Testosterone injection weekly (DME) needle (disp) 18 G [BD Regular [place]] 18 gauge x 1 needle See Rx Instructions .MEDSUPPLY Qty: 30 0RF Rx Instructions: As directed - draw up testosterone (DME) BD Regular [place] 23 gauge x 3/4 needle See Rx Instructions .MEDSUPPLY Qty: 30 0RF Rx Instructions: Inject testosterone subcutaneous testosterone cypionate [Depo-Testosterone] 200 mg/mL oil 80 mg subcut QWEEK 28 Days Qty: 2 2RF lisinopril 10 mg tablet 10 mg PO DAILY Qty: 90 2RF Print Language: Micronesian
[2025-03-27 13:51] VITALS: BP 148/75; PULSE 60; RESP 16; TEMP 36.4; O2SAT 99
== END 2025-03-27 13:51 | disposition home or self-care (01) ==
PROVIDERS: Emergency Provider Emergency Medicine
DX: S39.012A Strain of muscle, fascia and tendon of lower back, initial encounter (principal); W01.0XXA Fall on same level from slipping, tripping and stumbling without subsequent striking against object, initial encounter; R10.32 Left lower quadrant pain; Y93.E5 Activity, floor mopping and cleaning; Y92.218 Other school as the place of occurrence of the external cause; Y99.0 Civilian activity done for income or pay
CPT/HCPCS: 72100; 99283

== ENCOUNTER → 2025-03-27 12:22 | Outpatient (BNV) | payer OTHER, SELFPAY | PROVIDERS: Emergency Provider Emergency Medicine; Visit Provider Radiology Diagnostic Radiology | DX: M54.50 Low back pain, unspecified (principal) | CPT/HCPCS: 72100 ==

== ENCOUNTER 2025-04-05 11:28 | Emergency (ER) | payer OTHER, SELFPAY ==
[2025-04-05 11:30] VITALS: BP 166/84; PULSE 64; RESP 18; TEMP 36.6; O2SAT 99; BMI 25.1
--- NOTE | 2025-04-05 11:31 | ED.GENADULT ---
[facility] - General Adult General Chief complaint: Burn/Smoke Inhalation Stated complaint: chemical burn l side at work Time Seen by Provider: 04/05/25 12:41 Source: patient Mode of arrival: ambulatory Limitations: no limitations History of Present Illness ED Provider: [facility] narrative: 69-year-old male presenting with chemical burn to the left buttock and left lateral cuff area happened at work, he was using wax stripper chemical solution, slipped fell to his left side, removed his pants right away and washed the area when he started feeling the burning, reports tetanus up-to-date, no chemical inhalation, has been ambulatory. Related Data Previous Rx's ?Medication ?Instructions ?Recorded sildenafil 100 mg tablet 100 mg PO DAILY PRN sexual 04/21/24 activity 30 days #30 tabs needle (disp) 18 G 18 gauge x 1 #30 ea 01/20/25 (BD Regular [place]) needle (disp) 23 gauge 23 gauge x #30 ea 01/20/25 3/4 (BD Regular [place]) syringe (disposable) 1 mL (BD #30 ea 01/20/25 Luer-Chana Syringe) testosterone cypionate 200 mg/mL 80 mg (0.4 mL) subcut QWEEK 4 01/20/25 intramuscular oil weeks #2 mL (Depo-Testosterone) finasteride 5 mg tablet 5 mg PO DAILY #90 tabs 01/21/25 glyburide 5 mg tablet 5 mg PO DAILY #90 tabs 02/08/25 metformin 1,000 mg tablet 1,000 mg PO BID 90 days #180 tabs 02/18/25 lisinopril 20 mg tablet 20 mg PO DAILY #90 tabs 03/10/25 Held on 03/11/25. Instructions: Doctor's Order lisinopril 10 mg tablet 10 mg PO DAILY #90 tabs 03/11/25 terazosin 10 mg capsule 10 mg PO BID 90 days #180 caps 03/25/25 bacitracin 500 unit/gram topical 1 appl topical BID #30 grams 04/05/25 ointment Allergies Allergy/AdvReac Type Severity Reaction Status Date / Time morphine (MORPHINE) Allergy Intermediate ITCHING, Verified 04/05/25 11:32 Itchy/hives Review of Systems Constitutional: Constitutional: Reports as per [facility] Past Medical History Medical History Erectile dysfunction Obesity Diabetes mellitus, type II Cervical herniated disc Erectile dysfunction due to arterial insufficiency Glucosuria BPH (benign prostatic hyperplasia) Feeling of incomplete bladder emptying Umbilical hernia External bleeding hemorrhoids Rectal bleeding Surgical History History of repair of rotator cuff History of hand surgery History of bunionectomy History of fusion of cervical spine History of rectal surgery Family History Family History Father No problems noted. Mother Renal failure Heart disease Sister Diabetes Social History Social History Housing: House Patient Tobacco Use Status: Never used Tobacco e-Cigarette/Vaping Use: Never Used Second Hand Smoke Exposure: No Advance Directives: No Advance Directives Information Provided: Yes service: No Current occupational status: employed Cognitive needs: No Hearing needs: No Vision needs: No Physical Exam ED Vital Signs: Vital Signs - 24 hr 04/05/25 11:30 Temperature 98 F Pulse Rate 64 Respiratory Rate 18 Blood Pressure 166/84 H Pulse Oximetry 99 Oxygen Delivery Method Room Air BMI result Body Mass Index 25.1 Const Other: Gen: ?Overall well-appearing patient, no facial trauma, no head trauma HEENT: No potter around the nares of the mouth Resp: ?No wheezing rales rhonchi no stridor moving air welly MSK: FROM, strength 5/5 all extremities Skin: Superficial potter without blistering over left buttock not involving the perianal area, and on the lateral part of his left calf not involving the popliteal area, distal pulses intact, does not cross any joint lines Neuro: ?Alert and oriented x3, moving upper and lower extremities symmetrically, no obvious facial asymmetry noted Course Course Course Narrative: This is a rapid medical exam performed by Mathew Mcnulty NP: Additional HPI, ROS, PE not included below will be deferred to primary provider. Patient is a 69-year-old male with history of T2 DM, HTN presenting to the emergency department with complaint of potter to left lower extremity. States that he was using a floor stripper which is to remove wax from [employer] when his protective pants ripped and he fell onto his left side coming in contact with the floor stripper. Has potter to left leg, unable to fully visualize in triage. Plan: edge inker heels notified and patient brought directly to exam room Medical Decision Making Medical Decision Making [facility] Narrative: No evidence for chemical inhalation injury, there was no evidence for potter around his nares or his mouth, no trauma to her neck to suspect head injury, neck injury necessitating further imaging such as CT of the brain or cervical spine Tetanus up-to-date, no evidence for any full-thickness potter, vesicles, decreased sensation, or anything else crossing the joint lines that would necessitate burn Center involvement, we will treat this with superficial ointments, Tylenol ibuprofen as needed for pain no indication for antibiotics with this type of superficial injury Differential Diagnosis Differential Diagnoses: The differential diagnosis associated with the presentation includes (See above) Discharge Plan Discharge Clinical Impression: Chemical burn Patient Disposition: Home, Self-Care Instructions: Chemical Skin Burn (ED) Additional Instructions: Evaluated with chemical burn of the left buttock and left calf area, I recommend bacitracin ointment applied twice daily for the next 1 week to the whole area, this is something that does not require antibiotics orally, your tetanus up-to-date, and the treatment for pain is ibuprofen 400 mg every 6 hours needed or Tylenol 975 mg as needed In the unlikely event that there is any evidence for discharge of pus, redness, he is spiking fevers come back to the ER otherwise follow up with the PCP Prescriptions: New bacitracin 500 unit/gram ointment 1 appl topical BID Qty: 30 0RF No Action finasteride 5 mg tablet 5 mg PO DAILY Qty: 90 1RF glyburide 5 mg tablet 5 mg PO DAILY Qty: 90 0RF metformin 1,000 mg tablet 1,000 mg PO BID 90 Days Qty: 180 0RF lisinopril 20 mg tablet 20 mg PO DAILY Qty: 90 0RF terazosin 10 mg capsule 10 mg PO BID 90 Days Qty: 180 0RF sildenafil 100 mg tablet 100 mg PO DAILY PRN (Reason: sexual activity) 30 Days Qty: 30 1RF Rx Instructions: administer 60 minutes before intended activity (DME) BD Luer-Chana Syringe 1 mL syringe See Rx Instructions .MEDSUPPLY Qty: 30 0RF Rx Instructions: Testosterone injection weekly (DME) needle (disp) 18 G [BD Regular [place]] 18 gauge x 1 needle See Rx Instructions .MEDSUPPLY Qty: 30 0RF Rx Instructions: As directed - draw up testosterone (DME) BD Regular [place]vel [place] 23 gauge x 3/4 needle See Rx Instructions .MEDSUPPLY Qty: 30 0RF Rx Instructions: Inject testosterone subcutaneous testosterone cypionate [Depo-Testosterone] 200 mg/mL oil 80 mg subcut QWEEK 28 Days Qty: 2 2RF lisinopril 10 mg tablet 10 mg PO DAILY Qty: 90 2RF Stand Alone Forms: Work/School Release Print Language: Vietnamese
--- NOTE | 2025-04-05 12:15 | PC.NURSE ---
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
[2025-04-05 12:20] VITALS: BP 122/49; PULSE 62; RESP 15; TEMP 36.8; O2SAT 95
[2025-04-05 13:55] VITALS: BP 122/49; PULSE 62; RESP 15; TEMP 36.8; O2SAT 95
== END 2025-04-05 13:56 | disposition home or self-care (01) ==
PROVIDERS: Emergency Provider Emergency Medicine
DX: T65.891A Toxic effect of other specified substances, accidental (unintentional), initial encounter (principal); T21.45XA Corrosion of unspecified degree of buttock, initial encounter; T24.432A Corrosion of unspecified degree of left lower leg, initial encounter; Y93.E5 Activity, floor mopping and cleaning; Y92.218 Other school as the place of occurrence of the external cause; Y99.0 Civilian activity done for income or pay
CPT/HCPCS: 96372; 99284; J1885

== ENCOUNTER 2025-04-07 15:22 | Emergency (ER) | payer OTHER, SELFPAY ==
[2025-04-07 15:34] VITALS: BP 149/72; PULSE 65; RESP 18; TEMP 36.2; O2SAT 96; BMI 29.3
--- NOTE | 2025-04-07 15:37 | ED_ITS ---
HPI - General Adult General Chief complaint: Burn/Smoke Inhalation Stated complaint: Lt leg pain, was seen on saturday Time Seen by Provider: 04/07/25 19:13 History of Present Illness ED Provider: Luis KELLER narrative: The patient is a 69-year-old male who sustained chemical potter to his left leg 2 days ago on Saturday when he slipped at work. He has been working with some caustic material. He slipped and fell into the caustic material. This soaked through his pants which he promptly removed. Nevertheless he sustained potter to the region of his left buttock and, more significantly, to the lateral aspect of his left lower leg. Related Data Previous Rx's ?Medication ?Instructions ?Recorded sildenafil 100 mg tablet 100 mg PO DAILY PRN sexual 0 04/21/24 activity 30 days #30 tabs needle (disp) 18 G 18 gauge x 1 #30 ea 01/20/25 (BD Regular Bevel [place]) needle (disp) 23 gauge 23 gauge x #30 ea 01/20/25 3/4 (BD Regular Bevel [place]) syringe (disposable) 1 mL (BD #30 ea 01/20/25 Luer-Chana Syringe) testosterone cypionate 200 mg/mL 80 mg (0.4 mL) subcut QWEEK 4 01/20/25 intramuscular oil weeks #2 mL (Depo-Testosterone) finasteride 5 mg tablet 5 mg PO DAILY #90 tabs 01/21 glyburide 5 mg tablet 5 mg PO DAILY #90 tabs 02/08 metformin 1,000 mg tablet 1,000 mg PO BID 90 days #180 tabs 02/18/25 lisinopril 20 mg tablet 20 mg PO DAILY #90 tabs 11/03 Held on 03/11/25. Instructions: Doctor's Order lisinopril 10 mg tablet 10 mg PO DAILY #90 tabs 12/01 terazosin 10 mg capsule 10 mg PO BID 90 days #180 ca ps 03/25/25 bacitracin 500 unit/gram topical 1 appl topical BID #3 0 grams 04/05/25 ointment acetaminophen 500 mg capsule 1,000 mg (2 x 500 mg) PO Q8H PRN 04/07/25 fever or pain #14 caps doxycycline monohydrate 100 mg 100 mg PO BID #14 caps 04/07/25 capsule lidocaine 4 % topical gel 1 appl topical TID PRN pain #113 04/07/25 grams oxycodone 5 mg tablet 5 mg PO Q6H PRN pain #12 tab s 04/07/25 silver sulfadiazine 1 % topical 1 appl topical BID #85 grams 04/07/25 cream (Silvadene) tramadol 50 mg tablet 50 mg PO Q8H PRN pain 3 days #9 04/07/25 tabs Allergies Allergy/AdvReac Type Severity Reaction Status Date / Time morphine (MORPHINE) Allergy Intermediate ITCHING, Verified 04/07/25 15:40 Itchy/hives Review of Systems 2 Review of Systems: Yes all other systems are reviewed and are negative [facility] Past Medical History Medical History Erectile dysfunction Obesity Diabetes mellitus, type II Cervical herniated disc Erectile dysfunction due to arterial insufficiency Glucosuria BPH (benign prostatic hyperplasia) Feeling of incomplete bladder emptying Umbilical hernia External bleeding hemorrhoids Rectal bleeding Surgical History History of repair of rotator cuff History of hand surgery History of bunionectomy History of fusion of cervical spine History of rectal surgery Family History Family History Father No problems noted. Mother Renal failure Heart disease Sister Diabetes Social History Social History Housing: House Patient Tobacco Use Status: Never used Tobacco Smoked in Last 30 Days: No e-Cigarette/Vaping Use: Never Used Second Hand Smoke Exposure: No Use of substances other than those prescribed or required for medical reasons: No Advance Directives: No Advance Directives Information Provided: No service: No Current occupational status: employed Cognitive needs: No Hearing needs: No Vision needs: No Physical Exam ED Vital Signs: Vital Signs - 24 hr 04/07/25 15:34 04/07/25 19:07 04/07/25 20:04 Temperature 97.2 F 98.4 F 98.4 F Pulse Rate 65 53 53 Respiratory Rate 18 18 18 Blood Pressure 149/72 H 171/67 H 171/67 H Pulse Oximetry 96 97 97 Oxygen Delivery Method Room Air Room Air Room Air BMI result Body Mass Index 29.3 Const Other: The patient is a 69-year-old man. He looks as if he is ordinarily quite strong and vigorous. However he moves slowly and seems mildly uncomfortable. HENMT Other: The face is symmetrical. ?Mucous membranes moist. Eyes Other: Pupils are round equal, conjunctivae are clear, extraocular movements intact Neck Neck: Yes normal visual inspection, Yes full ROM and Yes no lymphadenopathy Resp Effort & Inspection: normal respiratory effort Auscultation: clear to auscultation bilaterally Skin Other: The patient has some mild scattered scab like lesions around the left buttock and a left posterior upper thigh. The most significant skin changes are on the lateral aspect of the left lower leg. There is diffuse punctate erythema with some areas of desquamation. This area is somewhat tender and warm. Neuro Other: The patient is awake and alert with a normal mental status. He seems to have some discomfort moving around but has grossly intact remedies. Extrem Other: The patient has a large patch of punctate erythema with some desquamation to the lateral aspect of the left lower leg. This is mildly warm. There is some mild edema to the left ankle below this. There was no lymphangitic streaking. He moves the extremities well. Course Course Course Narrative: RME, this is a rapid medical exam performed by Felix Thompson please refer to primary provider for complete H&P- 69-year-old male presents for evaluation of left leg pain. He reports he slipped into a pain stripper chemical which per in his left leg. He was seen here 2 days for and has been on bacitracin. He reports increased redness, swelling and pain. Plan for labs Medications Administered Discontinued Medications Generic Name Dose Route Start Last Admin Trade Name Freq PRN Reason Stop Dose Admin Diphtheria/Tetanus/Acell Pertussis 0.5 ml 04/07/25 19:28 04/07/25 19:59 Diphth,Pertus(Acell),Tet Adult 0.5 Ml Syringe IM 04/07/25 19:29 0.5 ml .ONCE ONE Administration Doxycycline Monohydrate 100 mg 04/07/25 19:28 04/07/25 19:58 Doxycycline Monohydrate 100 Mg Capsule PO 04/07/25 19:29 100 mg ONCE ONE Administration Medical Decision Making Medical Decision Making MDM Narrative: The patient is a very pleasant 69-year-old male with a history of type 2 diabetes who sustained some chemical potter to his buttock and left leg 2 days ago in a work accident. He slipped and fell on some caustic material. The crusting material got into his pants and caused some potter before he was able to get the pants off and wash off. He came to the emergency room on Saturday and was advised to use bacitracin. He feels that the skin lesions on the lateral aspect of the left lower leg or getting worse and he is having increasing pain. He also has some edema to the ankle below the burn. Clinically the patient does not appear septic. I think that what we are seeing is probably primarily the natural course of the burn but the patient is very concerned that he has developed an infection. He will be placed on doxycycline orally and Silvadene topically. Additionally I will send a prescription for oxycodone as needed for pain. He will be advised to rest and take it easy and keep the leg elevated. Since this is a work-related injury I have advised him to try to follow up with [facility]. Lab Data 04/07/25 15:47 04/07/25 15:47 Labs: Lab Results 04/07/25 04/07/25 Range/Units 15:47 18:47 WBC 8.6 (4.8-10.8) X10*3/uL RBC 4.52 L (4.60-5.80) X10*6/uL Hgb 11.2 L (14.0-18.0) g/dl Hct 35.0 L (42.0-52.0) % MCV 77.4 L (80.0-98.0) fL MCH 24.8 L (27.0-33.0) pg MCHC 32.0 (31.0-36.0) g/dl RDW 17.0 H (11.0-16.0) % Plt Count 182 (160-400) X10*3/uL MPV 9.8 (9.4-12.4) fL Immature Gran % (Auto) 0.2 (0.0-0.4) % Neut % (Auto) 55.3 (45-73) % Lymph % (Auto) 31.9 (20-40) % [place] % (Auto) 10.1 (2-11) % Eos % (Auto) 1.9 (0-4) % Baso % (Auto) 0.6 (0-2) % Lymph # (Auto) 2.7 (1.2-4.9) X10*3/uL [place] # (Auto) 0.9 (0.1-1.2) X10*3/uL Eos # (Auto) 0.2 (0.0-0.4) X10*3/uL Baso # (Auto) 0.1 (0.0-0.2) X10*3/uL Abs Immat Gran (auto) 0.02 (0.00-0.03) X10*3/uL Absolute Neuts (auto) 4.8 (2.0-8.3) x10*3/uL Absolute Nucleated RBC 0.000 (0.0-0.012) X10*3/uL Nucleated RBC % (auto) 0.0 (0.0-0.2) /100WBC Sodium 140 (135-145) mmol/L Potassium 4.1 (3.3-5.1) mmol/L Chloride 107 (96-108) mmol/L Carbon Dioxide 24 (22-29) mmol/L Anion Gap 13 (12-20) BUN 13 (9-16) mg/dL Creatinine 1.02 (0.5-1.4) mg/dL Estim Creat Clear Calc 81.6 Estimated GFR > 60 POC Glucose 118 H (60-115) mg/dL Random Glucose 93 (60-115) mg/dL Calcium 9.6 (8.4-10.2) mg/dL Total Bilirubin 0.3 (0.0-1.0) mg/dL AST 34 (5-37) U/L ALT 23 (0-40) U/L Alkaline Phosphatase 57 (39-117) U/L Total Protein 7.6 (6.5-8.0) g/dL Albumin 4.1 (3.5-5.0) g/dL Discharge Plan Discharge Clinical Impression: Burn of left lower leg Patient Disposition: Home, Self-Care Additional Instructions: You has been started on the antibiotic doxycycline. Please take this 2 times a day. I have also sent a prescription for a cream which you may apply 2 times a day. Please do your best to stay off your leg and keep the left leg elevated. Use acetaminophen as needed for pain. If necessary you may also use the oxycodone prescribed. I think I would declined the other prescriptions that has been sent in for you, the lidocaine and the tramadol. For follow up I would contact the [facility]. They are a Clinic here at [facility] which deals with a work-related injuries. I would call them tomorrow morning and describe what happened and see if you can get a prompt follow up appointment with them. Return to the emergency room if significantly worse. Prescriptions: New doxycycline monohydrate 100 mg capsule 100 mg PO BID Qty: 14 0RF silver sulfadiazine [Silvadene] 1 % cream 1 appl topical BID Qty: 85 0RF Rx Instructions: apply a 1.5 mm thickness oxycodone 5 mg tablet 5 mg PO Q6H PRN (Reason: pain) Qty: 12 0RF Rx Instructions: Partial Fill upon patient request. acetaminophen 500 mg capsule 1,000 mg PO Q8H PRN (Reason: fever or pain) Qty: 14 0RF No Action finasteride 5 mg tablet 5 mg PO DAILY Qty: 90 1RF glyburide 5 mg tablet 5 mg PO DAILY Qty: 90 0RF metformin 1,000 mg tablet 1,000 mg PO BID 90 Days Qty: 180 0RF lisinopril 20 mg tablet 20 mg PO DAILY Qty: 90 0RF terazosin 10 mg capsule 10 mg PO BID 90 Days Qty: 180 0RF lidocaine 4 % gel 1 appl topical TID PRN (Reason: pain) Qty: 113 0RF tramadol 50 mg tablet 50 mg PO Q8H PRN (Reason: pain) 3 Days Qty: 9 0RF bacitracin 500 unit/gram ointment 1 appl topical BID Qty: 30 0RF sildenafil 100 mg tablet 100 mg PO DAILY PRN (Reason: sexual activity) 30 Days Qty: 30 1RF Rx Instructions: administer 60 minutes before intended activity (DME) BD Luer-Chana Syringe 1 mL syringe See Rx Instructions .MEDSUPPLY Qty: 30 0RF Rx Instructions: Testosterone injection weekly (DME) needle (disp) 18 G [BD Regular [place]vel [place]] 18 gauge x 1 needle See Rx Instructions .MEDSUPPLY Qty: 30 0RF Rx Instructions: As directed - draw up testosterone (DME) BD Regular Bevel [place] 23 gauge x 3/4 needle See Rx Instructions .MEDSUPPLY Qty: 30 0RF Rx Instructions: Inject testosterone subcutaneous testosterone cypionate [Depo-Testosterone] 200 mg/mL oil 80 mg subcut QWEEK 28 Days Qty: 2 2RF lisinopril 10 mg tablet 10 mg PO DAILY Qty: 90 2RF Referrals: [facility] [Provider Group] Referral Note: chemical burn at work Jignesh Gamino FNP-C [Primary Care Provider, Internal Medicine] Interventions: ED Discharge Assessment Last Done: 04/07/25 20:04 Discharge Date/Time: 04/07/25 20:04 Print Language: Hungarian
[2025-04-07 15:51] LABS: MANUAL DIFF FLAG NO
[2025-04-07 15:59] LABS: Hematocrit 35.0 % (42.0-52.0); Hemoglobin 11.2 g/dl (14.0-18.0); Imm Gran Abs Auto 0.02 X10*3/uL (0.00-0.03); Imm Gran Pct Auto 0.2 % (0.0-0.4); Lymphocytes Absolute Auto 2.7 X10*3/uL (1.2-4.9); Mean Corpuscular HGB Conc 32.0 g/dl (31.0-36.0); Mean Corpuscular Hemoglobin 24.8 pg (27.0-33.0); Mean Corpuscular Volume 77.4 fL (80.0-98.0); NRBC Abs Auto 0.000 X10*3/uL (0.0-0.012); NRBC Pct Auto 0.0 /100WBC (0.0-0.2); Platelet Count 182 X10*3/uL (160-400); Red Blood Count 4.52 X10*6/uL (4.60-5.80); White Blood Count 8.6 X10*3/uL (4.8-10.8)
[2025-04-07 16:11] LABS: Alanine Aminotransferase 23 U/L (0-40); Albumin Level 4.1 g/dL (3.5-5.0); Alkaline Phosphatase 57 U/L (39-117); Anion Gap 13 (12-20); Aspartate Amino Transferase 34 U/L (5-37); Blood Urea Nitrogen 13 mg/dL (9-16); Calcium 9.6 mg/dL (8.4-10.2); Carbon Dioxide 24 mmol/L (22-29); Chloride 107 mmol/L (96-108); Creatinine Clr Calc Pharmacy 81.6; Estimated Glomerular Filt Rate > 60; Potassium 4.1 mmol/L (3.3-5.1); Sodium 140 mmol/L (135-145); Total Protein 7.6 g/dL (6.5-8.0)
[2025-04-07 18:51] LABS: Glucose, Whole Blood 118 mg/dL (60-115)
[2025-04-07 19:07] VITALS: BP 171/67; PULSE 53; RESP 18; TEMP 36.9; O2SAT 97
[2025-04-07] MEDS: Diphth,Pertus(ACell),Tet Adult 0.5 ML SYRINGE IM (19:59)
[2025-04-07 20:04] VITALS: BP 171/67; PULSE 53; RESP 18; TEMP 36.9; O2SAT 97
== END 2025-04-07 20:04 | disposition home or self-care (01) ==
PROVIDERS: Physician Assistant; Emergency Provider Emergency Medicine
DX: T24.402A Corrosion of unspecified degree of unspecified site of left lower limb, except ankle and foot, initial encounter (principal); T21.45XA Corrosion of unspecified degree of buttock, initial encounter; Y93.9 Activity, unspecified; Y92.89 Other specified places as the place of occurrence of the external cause; Y99.0 Civilian activity done for income or pay; Z23 Encounter for immunization
CPT/HCPCS: 36415; 80053; 82947; 85025; 90471; 90715; 96360; 99284

== ENCOUNTER → 2025-04-09 13:51 | Outpatient (BNVA) | payer OTHER, SELFPAY | PROVIDERS: Visit Provider Physician Assistant Medical | DX: Z09 Encounter for follow-up examination after completed treatment for conditions other than malignant neoplasm (principal); T21.25XA Burn of second degree of buttock, initial encounter; S80.02XA Contusion of left knee, initial encounter; S80.12XA Contusion of left lower leg, initial encounter; T52.8X1A Toxic effect of other organic solvents, accidental (unintentional), initial encounter; W01.0XXA Fall on same level from slipping, tripping and stumbling without subsequent striking against object, initial encounter | CPT/HCPCS: 73564; 99203 ==

== ENCOUNTER → 2025-04-12 14:28 | Outpatient (BNVA) | payer OTHER, SELFPAY | PROVIDERS: Visit Provider Physician Assistant Medical | DX: S80.02XA Contusion of left knee, initial encounter (principal); T21.35XA Burn of third degree of buttock, initial encounter; T24.302A Burn of third degree of unspecified site of left lower limb, except ankle and foot, initial encounter; T52.8X1A Toxic effect of other organic solvents, accidental (unintentional), initial encounter | CPT/HCPCS: 99213 ==

== ENCOUNTER → 2025-04-15 13:45 | Outpatient (BNVA) | payer OTHER, SELFPAY | PROVIDERS: Visit Provider Physician Assistant | DX: T21.25XD Burn of second degree of buttock, subsequent encounter (principal); T24.202D Burn of second degree of unspecified site of left lower limb, except ankle and foot, subsequent encounter; T52 Toxic effect of organic solvents; S80.02XD Contusion of left knee, subsequent encounter; W01.0XXD Fall on same level from slipping, tripping and stumbling without subsequent striking against object, subsequent encounter | CPT/HCPCS: 99214 ==

== ENCOUNTER → 2025-04-19 14:07 | Outpatient (BNVA) | payer OTHER, SELFPAY | PROVIDERS: Visit Provider Physician Assistant Medical | DX: T21.25XA Burn of second degree of buttock, initial encounter (principal); T24.222A Burn of second degree of left knee, initial encounter; T52.8X1A Toxic effect of other organic solvents, accidental (unintentional), initial encounter | CPT/HCPCS: 99213 ==

== ENCOUNTER 2025-05-14 09:15 | Outpatient (RCR) | payer OTHER, SELFPAY | END 2025-05-14 16:37 | disposition home or self-care (01) | LOC: HO.WCC 09:15 | PROVIDERS: Visit Provider Surgery Vascular Surgery | DX: T24.102D Burn of first degree of unspecified site of left lower limb, except ankle and foot, subsequent encounter (principal); T24.302D Burn of third degree of unspecified site of left lower limb, except ankle and foot, subsequent encounter; T31.0 Burns involving less than 10% of body surface; T52 Toxic effect of organic solvents; E11.9 Type 2 diabetes mellitus without complications; I10 Essential (primary) hypertension; Z79.84 Long term (current) use of oral hypoglycemic drugs; Z87.891 Personal history of nicotine dependence | CPT/HCPCS: 16020; 16025; 97597; 99213 ==

== ENCOUNTER → 2025-05-28 14:52 | Outpatient (BNVA) | payer OTHER, SELFPAY | PROVIDERS: Visit Provider Physician Assistant Medical | DX: T21.25XD Burn of second degree of buttock, subsequent encounter (principal); T24.202D Burn of second degree of unspecified site of left lower limb, except ankle and foot, subsequent encounter; T52 Toxic effect of organic solvents; Z02.79 Encounter for issue of other medical certificate | CPT/HCPCS: 99214 ==

== ENCOUNTER 2025-06-18 15:23 | Outpatient (AMB) | payer OTHER, SELFPAY ==
[2025-06-18 15:37] VITALS: BP 172/70; PULSE 65; RESP 18; TEMP 36.2; O2SAT 97; BMI 33.6
--- NOTE | 2025-06-18 15:37 | MHC.PC.OV ---
Vital Signs 06/18/25 15:37 06/18/25 16:42 Height 5 ft 11 in Weight 241 lb BMI 33.6 BP 172/70 H 162/84 H Blood Pressure Location Lt brachial Lt brachial Position Sitting Sitting Respiration 18 Pulse 65 Pulse Source Pulse Oximeter Temp 97.1 F Temp Source Temporal Artery Scan Pulse Oximetry (%) 97 Oxygen Delivery Method Room Air Intake Visit Reasons: Neck Pain Leather Belt Maker Required: No Accompanied by: Self / Same As Patient Allergies morphine (MORPHINE) Allergy (Intermediate, Verified 06/18/25 16:35) ITCHING, Itchy/hives Medication List - Last Reconciled 06/18/25 by JANEY Willis acetaminophen 1,000 mg (2 x 500 mg) PO Q8H PRN bacitracin 1 appl topical BID finasteride 5 mg PO DAILY glyburide 5 mg PO DAILY ibuprofen 800 mg PO TID lidocaine 4% 1 appl topical TID PRN lisinopril 20 mg PO DAILY Held on 03/11/25. Instructions: Doctor's Order lisinopril 10 mg PO DAILY metformin 1,000 mg PO BID 90 days needle (disp) 18 G (BD Regular Bevel [place]) As directed - draw up testosterone needle (disp) 23 gauge (BD Regular Bevel [place]) Inject testosterone subcutaneous oxycodone 5 mg PO Q6H PRN sildenafil 100 mg PO DAILY PRN 30 days silver sulfadiazine 1% (Silvadene) 1 appl topical BID syringe (disposable) (BD Luer-Chana Syringe) Testosterone injection weekly terazosin 10 mg PO BID 90 days testosterone cypionate (Depo-Testosterone) 80 mg (0.4 mL) subcut QWEEK 4 weeks tramadol 50 mg PO Q8H PRN 3 days Tobacco use date assessed: 06/18/25 Fall risk assessment: 1 Fall in past year Last assessed Fall Risk: 06/18/25 Dental Screening Dental Screen Date: 06/18/25 Did you have a dental visit in the last 12 months?: Yes Did you have a dental problem in the last 6 months where you did not have access to dental care?: No Was dental information given to patient?: Patient has dentist HPI Neck Pain HPI Details The patient is a 69-year-old male presenting with neck pain. The patient reports a fall at work about 2 months ago reports that he is not sure if that is the cause of his neck pain. The patient has a history of a significant accident in 1992, resulting in a broken neck, shoulder, and ribs, with surgical intervention involving plates and screws. Currently, the patient experiences a tingling sensation described as like a million bees in the neck and shoulders, which is intermittent and exacerbated by certain activities. The patient is concerned about the possibility of a pinched nerve or movement of the surgical hardware. The patient has a history of hypertension, which has been managed with medication adjustments, including a reduction from 20 mg to 10 mg of Lisinopril. The patient monitors blood pressure at home and has been advised to check it regularly due to its variability. The patient also has diabetes mellitus, managed with Metformin and Glyburide, and reports episodes of feeling down which may be related to blood sugar levels. The patient has been advised to monitor blood sugar levels, especially during episodes of feeling unwell. [facility] Medical History Erectile dysfunction Obesity Diabetes mellitus, type II Cervical herniated disc Erectile dysfunction due to arterial insufficiency Glucosuria BPH (benign prostatic hyperplasia) Feeling of incomplete bladder emptying Umbilical hernia External bleeding hemorrhoids Rectal bleeding Surgical History History of repair of rotator cuff History of hand surgery History of bunionectomy History of fusion of cervical spine History of rectal surgery Family History Father No problems noted. Mother Renal failure Heart disease Sister Diabetes Social History Housing: House Patient Tobacco Use Status: Never used Tobacco e-Cigarette/Vaping Use: Never Used Second Hand Smoke Exposure: No service: No Current occupational status: employed Cognitive needs: No Hearing needs: No Vision needs: No Questionnaire PHQ-9 Over the last 2 weeks, how often have you been bothered by any of the following problems? 1. Little interest or pleasure in doing things: not at all 2. Feeling down, depressed, or hopeless: not at all 3. Trouble falling or staying asleep, or sleeping too much: not at all 4. Feeling tired or having little energy: not at all 5. Poor appetite or overeating: not at all 6. Feeling bad about yourself - or that you are a failure or have let yourself or your family down: not at all 7. Trouble concentrating on things, such as reading the newspaper or watching television: not at all 8. Moving or speaking so slowly that other people could have noticed. Or the opposite - being so fidgety or restless that you have been moving around a lot more than usual: not at all 9. Thoughts that you would be better off or of hurting yourself in some way: not at all Total score: 0 Source: Developed by Drs. Blaine Glass, Savita Larkin, Mason Rosa and colleagues, with an educational jerrod from [employer]. Thrive Questionnaire Date Thrive assessed: 10/16/23 I am a: Patient What is your living situation today?: I have a steady place to live Within the past 12 months, did the food you bought not last and you didn't have the money to get more?: Sometimes True Within the past 12 months, did you worry whether your food would run out before you got money to buy more?: Often true Do you have trouble paying for medicines?: Yes Do you have trouble getting transportation to medical appointments?: Yes Do you have trouble paying your heating and electricity bill?: Yes Do you have trouble taking care of your child, family member or friend?: No Do you have trouble with day-to-day activities such as bathing, preparing meals, shopping, managing finances, etc.?: Yes Are you currently unemployed and looking for a job?: No Are you interested in more education?: No Please select the resources that you would like help with: Paying for medicine and None Currently or been in a relationship where the following occur: No concerns reported THRIVE Score: 4 AUDIT C Alcohol Use Questionnaire (AUDIT-C) 1. How often do you have a drink containing alcohol?: Never Total Score: 0 BRYAN-7 AMB Questionnaire BRYAN-7 Date BRYAN - 7 assessed: 10/16/23 Feeling nervous, anxious, or on edge: 0 = Not at all Not being able to stop or control worryin = Not at all Worrying too much about different things: 0 = Not at all Trouble relaxin = Not at all Being so restless that it is hard to sit still: 2 = More than half the days Becoming easily annoyed or irritable: 0 = Not at all Feeling afraid as if something awful might happen: 0 = Not at all Total BRYAN-7 score (0-4 normal; 5-9 mild; 10-14 moderate; 15-21 severe): 2 Source: Developed by Drs. Blaine Glass, Savita Larkin, Mason Rosa and colleagues, with an educational jerrod from [employer]. Review of Systems Const Denies headache(s) Eyes Denies loss of vision ENT Denies vertigo, Denies dizziness, Denies headache(s), Reports neck pain and Denies sore throat Card Denies chest pain, Denies leg edema and Denies lightheadedness Resp Denies cough, Denies hemoptysis and Denies wheezing GI Denies abdominal pain, Denies melena, Denies constipation, Denies diarrhea and Denies vomiting Denies dysuria, Denies urinary frequency and Denies urinary urgency Musc Reports arthralgias (Shoulders), Denies joint swelling, Reports neck pain, Denies numbness and Reports tingling (Neck and shoulders) Neuro Denies Abnormal speech present, Denies behavioral changes, Denies vertigo, Denies dizziness, Denies headache(s), Denies loss of vision, Denies memory loss, Denies numbness and Reports tingling (Neck and shoulders) Psych Denies anxiety, Denies behavioral changes, Denies depression, Denies memory loss and Denies panic attacks Dmitriy/Lymph Denies easy bleeding and Denies easy bruising Aller/Immun Denies wheezing Physical exam (Primary Care) Vital Signs: Last Vital Signs Temp 97.1 F 06/18/25 15:37 Pulse 65 06/18/25 15:37 Resp 18 06/18/25 15:37 BP 162/84 H 06/18/25 16:42 Pulse Ox 97 06/18/25 15:37 Oxygen Delivery Method Room Air 06/18/25 15:37 BMI result Body Mass Index 33.6 Tobacco/Smoking Status: Tobacco use Status Tobacco use date assessed 06/18/25 06/18/25 15:39 Patient Tobacco Use Status Never used Tobacco 06/18/25 15:39 e-Cigarette/Vaping Use Never Used 06/18/25 15:39 PHQ-9: PHQ-9 Score PHQ-9: Total score 0 06/18/25 16:35 Thrive Assessment: Date of Thrive Assessment Date Thrive assessed 10/16/23 06/18/25 15:39 Currently or been in a relationship where the following occur: No concerns reported Const General: healthy appearing, no acute distress, alert and awake Nutritional Appearance: well nourished Orientation/consciousness: oriented to person, oriented to place and oriented to time HENMT Ears: TM's normal bilaterally General nose exam: Normal nasal mucous membranes and turbinates present Eyes Conjunctivae: conjunctivae normal Sclerae: sclerae normal Pupils: Equal, round and reactive pupils present Neck Neck: Yes no lymphadenopathy and Yes no JVD Thyroid: Thyroid normal Carotids: no bruits Resp Effort & Inspection: normal respiratory effort and not tachypneic Auscultation: no crackles, no rales, no rhonchi and no wheezes Cardio Rate: regular rate Rhythm: regular rhythm Heart sounds: no murmurs and normal S1 and S2 GI Palpation (GI): Soft to palpation, nontender, no hepatomegaly and no splenomegaly Auscultation: normal bowel sounds General: Yes no CVA tenderness Back/Spine/Pelvis Back: no CVA tenderness Cervical Spine: No Cervical spine tenderness Skin General skin exam: no rashes or lesions noted and dry skin Neuro General: oriented to person, oriented to place and oriented to time Cranial nerves: Yes Equal, round and reactive pupils present Speech: No Abnormal speech present Gait exam (Neuro): Normal gait present Motor exam (neuro): no tremor noted Extrem Right upper extremity: full ROM and shoulder/upper arm Details: abnormal ROM Details: pain with passive ROM Details: with ADduction and with ABduction; no tenderness and no swelling Left upper extremity: full ROM and shoulder/upper arm Details: abnormal ROM Details: pain with passive ROM Details: in ADduction and in ABduction; no tenderness and no swelling Right lower extremity: full ROM; no edema Left lower extremity: full ROM; no edema Psych Mental Status: mental status grossly normal Speech and movement: Normal speech and movement present Affect: normal affect Attitude: cooperative Thought process: Normal thought process present Office Procedures Flu Questionnaire Does the patient have a severe egg allergy?: No Does the patient have severe life threatening allergies?: No Does the patient have a fever or illness today?: No Has the patient ever had Guillain-[place] Syndrome?: No Has the patient ever had any past reaction to a flu shot?: No Immunizations Fluarix [id number] (PF) 45 mcg (15 mcg x 3)/0.5 mL IM syringe Performing Provider: JANEY Willis [facility] Administered by: Yaritza Sewell LPN on 06/18/25 16:34 Dose Route Admin Location Dispensed Lot Number Expiration Date [facility] Carriage Operator 0.5 mL IM Left Deltoid 0.5 mL [id number] 03/08/26 [id number] [employer] VIS Given Date VIS Provided VIS Publication Date 06/18/25 Single Vaccine 24 Eligibility Eligibility Date Funding Source Not [facility] Eligible 06/18/25 Private Coding Level of Care Code Est Pt Level 3 (22071) Diagnoses Neck pain M54.2 Bilateral shoulder pain, unspecified chronicity M25.511; M25.512 Chronicity: unspecified Laterality: bilateral Hypertension, unspecified type I10 Hypertension type: unspecified Diabetes mellitus with coincident hypertension E11.9; I10 Assessment & Plan Assessment & Plan (1) Neck pain: Code(s): M54.2 - Cervicalgia Category: Medical Plan: The plan for the patient's neck pain includes obtaining an X-ray to assess for any movement of surgical hardware or other abnormalities. If the X-ray does not provide sufficient information, an MRI may be considered, although insurance may require physical therapy first. Physical therapy is recommended to address the neck pain and improve mobility. (2) Shoulder pain: Code(s): M25.519 - Pain in unspecified shoulder Category: Medical Qualifiers: Chronicity: unspecified Laterality: bilateral Qualified Code(s): M25.511 - Pain in right shoulder; M25.512 - Pain in left shoulder Plan: Pain radiates from neck into bilateral shoulders. Continue acetaminophen 1000 mg Q 8 p.r.n. (3) Hypertension: Code(s): I10 - Essential (primary) hypertension Category: Medical Qualifiers: Hypertension type: unspecified Qualified Code(s): I10 - Essential (primary) hypertension Plan: The patient is advised to monitor blood pressure at home regularly to ensure it remains controlled. If home readings remain high, adjustments to the current medication regimen may be necessary. The patient the pressure continues to be high. Lisinopril was increased from 10 mg to 20 mg prior and the patient started complaining of feeling down and refused higher dose. Lisinopril 10 mg was restarted. Reinforced low-salt diet. (4) Diabetes mellitus with coincident hypertension: Code(s): E11.9 - Type 2 diabetes mellitus without complications; I10 - Essential (primary) hypertension Category: Medical Plan: The patient is advised to monitor blood sugar levels, especially during episodes of feeling unwell, to determine if adjustments in medication are needed. The patient is currently managed with Metformin and Glyburide, and adjustments may be considered based on blood sugar readings. Orders: Orders XR cervical spine 3V 06/18/25 M54.2 - Cervicalgia Influenza [id number] Immunization 06/18/25 Z23 - Encounter for immunization PT Evaluation and Treatment 06/18/25 M25.519 - Pain in unspecified shoulder, M54.2 - Cervicalgia
[2025-06-18 16:42] VITALS: BP 162/84
== END 2025-06-18 16:54 | disposition home or self-care (01) ==
LOC: HO.HMCH 15:24
DX: Z23 Encounter for immunization (principal)

== ENCOUNTER → 2025-06-18 15:23 | Outpatient (BNVA) | payer OTHER, SELFPAY | DX: M54.2 Cervicalgia (principal); Z23 Encounter for immunization; M25.511 Pain in right shoulder; M25.512 Pain in left shoulder; I10 Essential (primary) hypertension; E11.9 Type 2 diabetes mellitus without complications; Z79.84 Long term (current) use of oral hypoglycemic drugs; Z79.899 Other long term (current) drug therapy; Z13.39 Encounter for screening examination for other mental health and behavioral disorders | CPT/HCPCS: 90471; 90656; 96127; 99212 ==

== ENCOUNTER 2025-06-28 15:42 | Outpatient (REF) | payer OTHER, SELFPAY ==
--- NOTE | ~2025-06-28 | XR_ITS ---
EXAMINATION: XR CERVICAL SPINE CLINICAL INFORMATION: M54.2 - Cervicalgia COMPARISON: X-ray 11/23/2021 TECHNIQUE: 4 views FINDINGS: Postsurgical changes anterior spinal fusion hardware at C5-6. Stable position and alignment. Intact hardware. No suspicious perihardware lucencies. Redemonstrated anterior inferior spurring at C3 and C4. No prevertebral soft tissue swelling. Predens space is maintained. Vertebral body heights are maintained. No visible acute fracture.. Facet degeneration in the the lower cervical spine. Lung apices are clear. XR/XR cervical spine 3V IMPRESSION: Anterior fusion at C5-6. Intact hardware. No acute osseous findings Electronically signed by: Umberto Calderon MD 06/28/2025 05:13 PM EDT
== END 2025-06-28 15:43 | disposition home or self-care (01) ==
LOC: HO.XRAY 15:42
DX: M54.2 Cervicalgia (principal)
CPT/HCPCS: 72040

== ENCOUNTER → 2025-06-28 15:47 | Outpatient (BNV) | payer OTHER, SELFPAY | PROVIDERS: Visit Provider Radiology Diagnostic Ultrasound | DX: M43.22 Fusion of spine, cervical region (principal) | CPT/HCPCS: 72040 ==

== ENCOUNTER 2025-07-26 08:05 | Outpatient (REF) | payer OTHER, SELFPAY ==
[2025-07-26 08:20] LABS: MANUAL DIFF FLAG NO
[2025-07-26 09:13] LABS: Hematocrit 36.5 % (42.0-52.0); Hemoglobin 11.5 g/dl (14.0-18.0); Imm Gran Abs Auto 0.02 X10*3/uL (0.00-0.03); Imm Gran Pct Auto 0.3 % (0.0-0.4); Lymphocytes Absolute Auto 2.7 X10*3/uL (1.2-4.9); Mean Corpuscular HGB Conc 31.5 g/dl (31.0-36.0); Mean Corpuscular Hemoglobin 25.8 pg (27.0-33.0); Mean Corpuscular Volume 81.8 fL (80.0-98.0); NRBC Abs Auto 0.000 X10*3/uL (0.0-0.012); NRBC Pct Auto 0.0 /100WBC (0.0-0.2); Platelet Count 192 X10*3/uL (160-400); Red Blood Count 4.46 X10*6/uL (4.60-5.80); White Blood Count 7.2 X10*3/uL (4.8-10.8)
[2025-07-26 09:45] LABS: Alanine Aminotransferase 29 U/L (0-40); Albumin Level 4.1 g/dL (3.5-5.0); Alkaline Phosphatase 64 U/L (39-117); Anion Gap 11 (12-20); Aspartate Amino Transferase 34 U/L (5-37); Blood Urea Nitrogen 16 mg/dL (9-16); Calcium 9.1 mg/dL (8.4-10.2); Carbon Dioxide 25 mmol/L (22-29); Chloride 107 mmol/L (96-108); Cholesterol 152 mg/dL (<200); Estimated Glomerular Filt Rate > 60; HDL Cholesterol 34 mg/dL (>40); Potassium 4.2 mmol/L (3.3-5.1); Sodium 139 mmol/L (135-145); Total Protein 7.6 g/dL (6.5-8.0); Triglycerides 175 mg/dL (<150)
[2025-07-26 09:50] LABS: Appearance Urine Clear; Glucose Urine UA Negative (Negative); PH 6.5 (5.0-9.0); Specific Gravity - Urine 1.010 (1.005-1.025)
[2025-07-26 10:00] LABS: PSA,Total (Free>4and<10) 4.67 ng/mL (0.00-4.00)
[2025-07-28 13:23] LABS: Free Prostate Spec Ag 1.6 ng/mL; Percent Free Prostate Spec Ag 31 % (calc) (>25)
== END 2025-07-26 08:06 | disposition home or self-care (01) ==
LOC: HO.LAB 08:05
DX: Z00.00 Encounter for general adult medical examination without abnormal findings (principal); E29.1 Testicular hypofunction; M25.519 Pain in unspecified shoulder; M54.50 Low back pain, unspecified; N13.8 Other obstructive and reflux uropathy; E11.9 Type 2 diabetes mellitus without complications; I10 Essential (primary) hypertension; E66.9 Obesity, unspecified; N40.0 Benign prostatic hyperplasia without lower urinary tract symptoms; Z12.5 Encounter for screening for malignant neoplasm of prostate
CPT/HCPCS: 36415; 80053; 80061; 81003; 82306; 83036; 84153; 84154; 84443; 85025

== ENCOUNTER 2025-08-16 15:47 | Outpatient (AMB) | payer OTHER, SELFPAY ==
[2025-08-16 15:53] VITALS: BP 140/82; PULSE 66; O2SAT 98; BMI 34.9
--- NOTE | 2025-08-16 15:53 | A.OFFPC_ITS ---
Vital Signs 08/16/25 15:53 Height 5 ft 11 in Weight 250 lb BMI 34.9 BP 140/82 H Blood Pressure Location Lt brachial Position Sitting Pulse 66 Pulse Source Pulse Oximeter Pulse Oximetry (%) 98 Oxygen Delivery Method Room Air Intake Visit Reasons: LT back shoulder pain/burning sensation Allergies morphine (MORPHINE) Allergy (Intermediate, Verified 08/16/25 15:53) ITCHING, Itchy/hives Medication List - Last Reconciled 08/16/25 by Rick Long MD acetaminophen 1,000 mg (2 x 500 mg) PO Q8H PRN bacitracin 1 appl topical BID clotrimazole 1% (Antifungal (clotrimazole)) 1 appl topical BID 4 weeks finasteride 5 mg PO DAILY glyburide 5 mg PO DAILY ibuprofen 800 mg PO TID lidocaine 4% 1 appl topical TID PRN lisinopril 20 mg PO DAILY Held on 03/11/25. Instructions: Doctor's Order lisinopril 10 mg PO DAILY metformin 1,000 mg PO BID 90 days needle (disp) 18 G (BD Regular Bevel [place]) As directed - draw up testosterone needle (disp) 23 gauge (BD Regular Bevel [place]) Inject testosterone subcutaneous oxycodone 5 mg PO Q6H PRN sildenafil 100 mg PO DAILY PRN 30 days silver sulfadiazine 1% (Silvadene) 1 appl topical BID syringe (disposable) (BD Luer-Chana Syringe) Testosterone injection weekly terazosin 10 mg PO BID 90 days testosterone cypionate (Depo-Testosterone) 80 mg (0.4 mL) subcut QWEEK 4 weeks tramadol 50 mg PO Q8H PRN 3 days Tobacco use date assessed: 06/18/25 Fall risk assessment: No Falls in past year Last assessed Fall Risk: 08/16/25 Dental Screening Dental Screen Date: 06/18/25 HPI HPI Comments History of Present Illness Details The patient is a 70-year-old male presenting with a complaint of a deep, localized itch on the left side of his upper back for the last month and a half. The pruritus is constant, occurring daily, and is sometimes associated with a burning sensation. 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 He has tried [id number] Benadryl cream and a triple antibiotic ointment with temporary, minimal relief. He denies any fever, chills, or itching elsewhere on his body, and denies a history of shingles. [facility] Medical History (Updated 08/16/25 @ 16:29 by Rick Long MD) Erectile dysfunction Obesity Diabetes mellitus, type II Cervical herniated disc Erectile dysfunction due to arterial insufficiency Glucosuria BPH (benign prostatic hyperplasia) Feeling of incomplete bladder emptying Umbilical hernia External bleeding hemorrhoids Rectal bleeding Surgical History (Updated 07/26/25 @ 23:03 by JANEY Willis) History of repair of rotator cuff History of hand surgery History of bunionectomy History of fusion of cervical spine History of rectal surgery Family History Father No problems noted. Mother Renal failure Heart disease Sister Diabetes Social History Housing: House Patient Tobacco Use Status: Never used Tobacco Tobacco use type: Cigarette e-Cigarette/Vaping Use: Never Used Second Hand Smoke Exposure: No service: No Current occupational status: employed Cognitive needs: No Hearing needs: No Vision needs: No Questionnaire Thrive Questionnaire Date Thrive assessed: 06/18/25 I am a: Patient What is your living situation today?: I have a steady place to live Within the past 12 months, did the food you bought not last and you didn't have the money to get more?: Sometimes True Within the past 12 months, did you worry whether your food would run out before you got money to buy more?: Often true Do you have trouble paying for medicines?: Yes Do you have trouble getting transportation to medical appointments?: Yes Do you have trouble paying your heating and electricity bill?: Yes Do you have trouble taking care of your child, family member or friend?: No Do you have trouble with day-to-day activities such as bathing, preparing meals, shopping, managing finances, etc.?: Yes Are you currently unemployed and looking for a job?: No Are you interested in more education?: No Currently or been in a relationship where the following occur: No concerns reported THRIVE Score: 4 BRYAN-7 AMB Questionnaire BRYAN-7 Date BRYAN - 7 assessed: 10/16/23 Source: Developed by Drs. Blaine Glass, Savita Larkin, Mason Rosa and colleagues, with an educational jerrod from [employer]. Review of Systems Const Details: As per HPI. Physical exam (Primary Care) Vital Signs: Last Vital Signs Pulse 66 08/16/25 15:53 BP 140/82 H 08/16/25 15:53 Pulse Ox 98 08/16/25 15:53 Oxygen Delivery Method Room Air 08/16/25 15:53 BMI result Body Mass Index 34.9 Tobacco/Smoking Status: Tobacco use Status Tobacco use date assessed 06/18/25 08/16/25 15:57 Patient Tobacco Use Status Never used Tobacco 08/16/25 15:57 Tobacco use type Cigarette 08/16/25 15:57 e-Cigarette/Vaping Use Never Used 08/16/25 15:57 Thrive Assessment: Date of Thrive Assessment Date Thrive assessed 06/18/25 08/16/25 15:57 Currently or been in a relationship where the following occur: No concerns reported Const Other: Pertinent findings are in BOLD GENERAL APPEARANCE NAD, activity normal for age, well developed/ well nourished, no cyanosis, pallor, or diaphoresis. EYES lids/conjunctiva normal. EARS/NOSE/THROAT Mucous membranes moist, nares normal, lips/teeth normal uvula midline without oral pharyngeal erythema, exudate or swelling TMs normal bilaterally. No lymphangitis/lymphedema. HEAD/NECK normocephalic atraumatic, no facial trauma, neck is supple. RESPIRATORY respiratory effort normal, speaks in full sentences, no tripod position, no accessory muscle use. Lungs clear to auscultation without rhonchi, wheezes, rales CARDIAC Regular rate and rhythm, no edema. ABDOMINAL Soft, ND/NT. No evidence of fluid wave. No pulsatile masses on exam, rebound tenderness, Botello sign or pain over Mcburney's point. MUSCLES/EXTREMITIES No abnormal range of motion, no swelling. SKIN Warm, pink and dry. No rashes, dermatoses, petechiae or lesions. No skin changes seen on right upper back. NEUROLOGICAL Speech is clear and appropriate. Normal level of consciousness. Gait and coordination are normal. 5/5 strength in all extremities. PSYCH Normal mood and affect. Judgement/competence is appropriate Coding Level of Care Code Est Pt Level 3 (74694) Diagnoses Itching L29.9 Time Spent (min) 20 Assessment & Plan Assessment & Plan (1) Itching: Comment: Left upper back. Code(s): L29.9 - Pruritus, unspecified Category: Medical Plan: - The patient presents with a deep, localized itch on his left back for 1.5 months, now with associated pain from scratching. - Physical exam is unremarkable, with no visible skin changes. - While a fungal infection is less likely without visible signs, a trial of antifungal cream is warranted. - Prescribed clotrimazole 1% cream to be applied twice daily for four weeks. - The patient was informed this may also be available [id number]. - Referred to dermatology for further evaluation, possibly with specialized tools like a Wood's lamp to investigate further. Plan I discussed with the patient that although I do not see any visible signs of a fungal infection on his back, we will start treatment with a course of clotrimazole 1% cream, to be applied twice daily for four weeks. I informed him that this medication may be available [id number], potentially at a lower cost than the prescription. Furthermore, I have referred him to dermatology for a specialized evaluation. I provided him with the dermatology office's phone number and instructed him to call them if he does not receive a call to schedule an appointment within a week. Orders: Referrals Dermatology Referral L29.9 - Pruritus, unspecified Medications: New clotrimazole 1% (Antifungal (clotrimazole)) 1 appl topical BID 30 grams 0RF 4 weeks
== END 2025-08-16 16:21 | disposition home or self-care (01) ==
LOC: HO.HMCH 15:48
PROVIDERS: Visit Provider Internal Medicine
DX: L29.9 Pruritus, unspecified (principal)

== ENCOUNTER 2025-09-07 09:00 | Emergency (ER) | payer OTHER, SELFPAY ==
--- NOTE | ~2025-09-07 | XR_ITS ---
EXAMINATION: XR CHEST 2 VIEWS HISTORY: central chest pain COMPARISON: Comparison is made with the prior examination dated 09/04/2021. FINDINGS: PA and lateral views of the chest are submitted. The lungs are expanded and clear. There is no pleural effusion, pneumothorax, or pulmonary vascular congestion. The heart is normal in size. There is degenerative disc disease of the spine. There are suture anchors in the right humeral head. A portion of a fusion plate is noted in the lower cervical spine. XR/XR chest 2V IMPRESSION: No acute cardiopulmonary abnormality. Electronically signed by: Blaine Zamudio MD 09/07/2025 09:57 AM EST
--- NOTE | 2025-09-07 09:02 | ECG_ITS ---
Test Reason : chest pain Blood Pressure : */* mmHG Vent. Rate : 64 BPM Atrial Rate : 64 BPM P-R Int : 178 ms QRS Dur : 100 ms QT Int : 402 ms P-R-T Axes : 31 -21 3 degrees QTcB Int : 414 ms Normal sinus rhythm Minimal voltage criteria for LVH, may be normal variant ( R in aVL ) Borderline ECG No previous ECGs available Referred By: Mary Lynn Electronically Signed By: ZAIRA CORTEZ
[2025-09-07 09:20] VITALS: BP 180/82; PULSE 63; RESP 16; TEMP 37; O2SAT 99; BMI 34.8
--- NOTE | 2025-09-07 09:20 | ED.GENADULT ---
HPI - General Adult General Chief complaint: Chest Pain Stated complaint: chest discomfort Related Data Previous Rx's ?Medication ?Instructions ?Recorded needle (disp) 18 G 18 gauge x 1 #30 ea 01/20/25 (BD Regular Bevel [place]) needle (disp) 23 gauge 23 gauge x #30 ea 01/20/25 3/4 (BD Regular [place]vel [place]) syringe (disposable) 1 mL (BD #30 ea 01/20/25 Luer-Chana Syringe) testosterone cypionate 200 mg/mL 80 mg (0.4 mL) subcut QWEEK 4 01/20/25 intramuscular oil weeks #2 mL (Depo-Testosterone) finasteride 5 mg tablet 5 mg PO DAILY #90 tabs 01/21/25 lisinopril 20 mg tablet 20 mg PO DAILY #90 tabs 03/10/25 Held on 03/11/25. Instructions: Doctor's Order lisinopril 10 mg tablet 10 mg PO DAILY #90 tabs 03/11/25 terazosin 10 mg capsule 10 mg PO BID 90 days #180 caps 03/25/25 bacitracin 500 unit/gram topical 1 appl topical BID #30 grams 04/05/25 ointment acetaminophen 500 mg capsule 1,000 mg (2 x 500 mg) PO Q8H PRN 04/07/25 fever or pain #14 caps lidocaine 4 % topical gel 1 appl topical TID PRN pain #113 04/07/25 grams oxycodone 5 mg tablet 5 mg PO Q6H PRN pain #12 tabs 04/07/25 silver sulfadiazine 1 % topical 1 appl topical BID #85 grams 04/07/25 cream (Silvadene) tramadol 50 mg tablet 50 mg PO Q8H PRN pain 3 days #9 04/07/25 tabs ibuprofen 800 mg tablet 800 mg PO TID #30 tabs 04/09/25 sildenafil 100 mg tablet 100 mg PO DAILY PRN sexual 05/07/25 activity 30 days #30 tabs clotrimazole 1 % topical cream 1 appl topical BID 4 weeks #30 08/16/25 (Antifungal (clotrimazole)) grams metformin 1,000 mg tablet 1,000 mg PO BID 90 days #180 tabs 08/20/25 glipizide 5 mg tablet, extended 5 mg PO DAILY #90 tabs 09/01/25 release 24 hr Allergies Allergy/AdvReac Type Severity Reaction Status Date / Time morphine (MORPHINE) Allergy Intermediate ITCHING, Verified 09/07/25 09:23 Itchy/hives PMFSH Past Medical History Medical History (Updated 09/08/25 @ 07:31 by BANDAR Jackson) Erectile dysfunction Obesity Diabetes mellitus, type II Cervical herniated disc Erectile dysfunction due to arterial insufficiency Glucosuria BPH (benign prostatic hyperplasia) Feeling of incomplete bladder emptying Umbilical hernia External bleeding hemorrhoids Rectal bleeding Surgical History (Updated 07/26/25 @ 23:03 by JNAEY Willis) History of repair of rotator cuff History of hand surgery History of bunionectomy History of fusion of cervical spine History of rectal surgery Family History Family History Father No problems noted. Mother Renal failure Heart disease Sister Diabetes Social History Social History Housing: House Patient Tobacco Use Status: Never used Tobacco Tobacco use type: Cigarette e-Cigarette/Vaping Use: Never Used Second Hand Smoke Exposure: No service: No Current occupational status: employed Cognitive needs: No Hearing needs: No Vision needs: No Physical Exam ED Vital Signs: Vital Signs - 24 hr 09/07/25 09:20 Temperature 98.6 F Pulse Rate 63 Respiratory Rate 16 Blood Pressure 180/82 H Pulse Oximetry 99 Oxygen Delivery Method Room Air BMI result Body Mass Index 34.8 Course Course Course Narrative: This is a Rapid Medical Examination (RME) performed by Naldo Lynn PA-C in triage. Full HPI, ROS, assessment and treatment plan per primary provider in the Main ED. Hx: 70 yo M here for sternal pain x months. pain worsened when he was fixing a faucet yesterday and turned his body, felt a sharp pain in the middle of his chest. pain worse w/ movement. no sob. Plan: labs, cxr, ekg Reevaluation(s) Reevaluation #1: Patient left the emergency department before myself or any of the other clinicians could review or explain physical exam findings, test results, need or lack there of for additional testing, treatment options, or a treatment plan. Medical Decision Making Lab Data 09/07/25 09:29 09/07/25 09:29 Labs: Lab Results 09/07/25 Range/Units 09:29 WBC 6.8 (4.8-10.8) X10*3/uL RBC 4.48 L (4.60-5.80) X10*6/uL Hgb 11.4 L (14.0-18.0) g/dl Hct 35.1 L (42.0-52.0) % MCV 78.3 L (80.0-98.0) fL MCH 25.4 L (27.0-33.0) pg MCHC 32.5 (31.0-36.0) g/dl RDW 15.2 (11.0-16.0) % Plt Count 169 (160-400) X10*3/uL MPV 8.8 L (9.4-12.4) fL Immature Gran % (Auto) 0.3 (0.0-0.4) % Neut % (Auto) 51.6 (45-73) % Lymph % (Auto) 36.3 (20-40) % Posey % (Auto) 8.9 (2-11) % Eos % (Auto) 2.5 (0-4) % Baso % (Auto) 0.4 (0-2) % Lymph # (Auto) 2.5 (1.2-4.9) X10*3/uL Posey # (Auto) 0.6 (0.1-1.2) X10*3/uL Eos # (Auto) 0.2 (0.0-0.4) X10*3/uL Baso # (Auto) 0.0 (0.0-0.2) X10*3/uL Abs Immat Gran (auto) 0.02 (0.00-0.03) X10*3/uL Absolute Neuts (auto) 3.5 (2.0-8.3) x10*3/uL Absolute Nucleated RBC 0.000 (0.0-0.012) X10*3/uL Nucleated RBC % (auto) 0.0 (0.0-0.2) /100WBC Sodium 137 (135-145) mmol/L Potassium 4.3 (3.3-5.1) mmol/L Chloride 107 (96-108) mmol/L Carbon Dioxide 23 (22-29) mmol/L Anion Gap 11 L (12-20) BUN 14 (9-16) mg/dL Creatinine 1.06 (0.5-1.4) mg/dL Estim Creat Clear Calc 84.1 Estimated GFR > 60 Random Glucose 233 H (60-115) mg/dL Calcium 9.1 (8.4-10.2) mg/dL Magnesium 1.8 (1.6-2.6) mg/dL Total Bilirubin 0.3 (0.0-1.0) mg/dL AST 35 (5-37) U/L ALT 32 (0-40) U/L Alkaline Phosphatase 65 (39-117) U/L Troponin I High Sens < 2.7 (<3.5-35.0) ng/L Total Protein 7.7 (6.5-8.0) g/dL Albumin 4.1 (3.5-5.0) g/dL Lipase 54 (8-78) U/L Discharge Plan Discharge Clinical Impression: Chest pain Patient Disposition: Left W/O Completing Treatment Prescriptions: No Action finasteride 5 mg tablet 5 mg PO DAILY Qty: 90 1RF lisinopril 20 mg tablet 20 mg PO DAILY Qty: 90 0RF terazosin 10 mg capsule 10 mg PO BID 90 Days Qty: 180 0RF lidocaine 4 % gel 1 appl topical TID PRN (Reason: pain) Qty: 113 0RF tramadol 50 mg tablet 50 mg PO Q8H PRN (Reason: pain) 3 Days Qty: 9 0RF sildenafil 100 mg tablet 100 mg PO DAILY PRN (Reason: sexual activity) 30 Days Qty: 30 1RF Rx Instructions: administer 60 minutes before intended activity metformin 1,000 mg tablet 1,000 mg PO BID 90 Days Qty: 180 0RF glipizide 5 mg tablet extended release 24hr 5 mg PO DAILY Qty: 90 3RF bacitracin 500 unit/gram ointment 1 appl topical BID Qty: 30 0RF silver sulfadiazine [Silvadene] 1 % cream 1 appl topical BID Qty: 85 0RF Rx Instructions: apply a 1.5 mm thickness oxycodone 5 mg tablet 5 mg PO Q6H PRN (Reason: pain) Qty: 12 0RF Rx Instructions: Partial Fill upon patient request. acetaminophen 500 mg capsule 1,000 mg PO Q8H PRN (Reason: fever or pain) Qty: 14 0RF (DME) BD Luer-Chana Syringe 1 mL syringe See Rx Instructions .MEDSUPPLY Qty: 30 0RF Rx Instructions: Testosterone injection weekly (DME) needle (disp) 18 G [BD Regular [place]vel [place]] 18 gauge x 1 needle See Rx Instructions .MEDSUPPLY Qty: 30 0RF Rx Instructions: As directed - draw up testosterone (DME) BD Regular Bevel [place] 23 gauge x 3/4 needle See Rx Instructions .MEDSUPPLY Qty: 30 0RF Rx Instructions: Inject testosterone subcutaneous testosterone cypionate [Depo-Testosterone] 200 mg/mL oil 80 mg subcut QWEEK 28 Days Qty: 2 2RF lisinopril 10 mg tablet 10 mg PO DAILY Qty: 90 2RF clotrimazole [Antifungal (clotrimazole)] 1 % cream 1 appl topical BID 28 Days Qty: 30 0RF ibuprofen 800 mg tablet 800 mg PO TID Qty: 30 0RF Discharge Date/Time: 09/07/25 18:00
[2025-09-07 09:35] LABS: MANUAL DIFF FLAG NO
[2025-09-07 09:39] LABS: Hematocrit 35.1 % (42.0-52.0); Hemoglobin 11.4 g/dl (14.0-18.0); Imm Gran Abs Auto 0.02 X10*3/uL (0.00-0.03); Imm Gran Pct Auto 0.3 % (0.0-0.4); Lymphocytes Absolute Auto 2.5 X10*3/uL (1.2-4.9); Mean Corpuscular HGB Conc 32.5 g/dl (31.0-36.0); Mean Corpuscular Hemoglobin 25.4 pg (27.0-33.0); Mean Corpuscular Volume 78.3 fL (80.0-98.0); NRBC Abs Auto 0.000 X10*3/uL (0.0-0.012); NRBC Pct Auto 0.0 /100WBC (0.0-0.2); Platelet Count 169 X10*3/uL (160-400); Red Blood Count 4.48 X10*6/uL (4.60-5.80); White Blood Count 6.8 X10*3/uL (4.8-10.8)
[2025-09-07 10:04] LABS: Alanine Aminotransferase 32 U/L (0-40); Albumin Level 4.1 g/dL (3.5-5.0); Alkaline Phosphatase 65 U/L (39-117); Anion Gap 11 (12-20); Aspartate Amino Transferase 35 U/L (5-37); Blood Urea Nitrogen 14 mg/dL (9-16); Calcium 9.1 mg/dL (8.4-10.2); Carbon Dioxide 23 mmol/L (22-29); Chloride 107 mmol/L (96-108); Creatinine Clr Calc Pharmacy 84.1; Estimated Glomerular Filt Rate > 60; Lipase 54 U/L (8-78); Magnesium 1.8 mg/dL (1.6-2.6); Potassium 4.3 mmol/L (3.3-5.1); Sodium 137 mmol/L (135-145); Total Protein 7.7 g/dL (6.5-8.0)
[2025-09-07 10:13] LABS: Troponin-I High Sensitivity < 2.7 ng/L (<3.5-35.0)
== END 2025-09-07 18:00 | disposition left against medical advice (07) ==
PROVIDERS: Physician Assistant Medical; Emergency Provider Emergency Medicine
DX: R07.9 Chest pain, unspecified (principal); E11.9 Type 2 diabetes mellitus without complications; I10 Essential (primary) hypertension; Z79.84 Long term (current) use of oral hypoglycemic drugs; Z79.899 Other long term (current) drug therapy
CPT/HCPCS: 36415; 71046; 80053; 83690; 83735; 84484; 85025; 93005; 99283

== ENCOUNTER → 2025-09-07 09:02 | Outpatient (BNV) | payer OTHER, SELFPAY | PROVIDERS: Emergency Provider Emergency Medicine; Visit Provider Internal Medicine | DX: R07.9 Chest pain, unspecified (principal) | CPT/HCPCS: 93010 ==

== ENCOUNTER → 2025-09-07 09:21 | Outpatient (BNV) | payer OTHER, SELFPAY | PROVIDERS: Visit Provider Radiology Diagnostic Radiology | DX: R07.9 Chest pain, unspecified (principal) | CPT/HCPCS: 71046 ==

== ENCOUNTER 2025-09-08 14:08 | Outpatient (AMB) | payer OTHER, SELFPAY ==
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
[2025-09-08 14:14] VITALS: BP 140/80; PULSE 67; TEMP 36.2; O2SAT 97; BMI 34.4
== END 2025-09-08 14:51 | disposition home or self-care (01) ==
LOC: HO.HMCH 14:09
PROVIDERS: Visit Provider Internal Medicine
DX: M94.0 Chondrocostal junction syndrome [Tietze] (principal)